=== PATIENT | male | born 1965 | race Caucasian/White ===

== ENCOUNTER 2019-03-26 11:03 | Inpatient (IN) ==
--- NOTE | 2019-03-26 15:57 | Diag Imaging Result Doc PS360 ---
EXAM: MRI BRAIN W/WO CONTRAST HISTORY: CVA TECHNIQUE: MRI brain with and without intravenous contrast. Axial, sagittal, and coronal images obtained in multiple sequences. These are followed by post contrasted axial and coronal images. COMPARISON: CT head from 03/23/2019 FINDINGS: Motion degrades image quality. There is a recent 12 x 19 mm infarct in the right basal ganglia. There also appears to be a recent lacunar infarct in the mid left parietal lobe measuring only 4 to 5 mm. There are prominent chronic microvascular ischemic changes with old infarcts. There is also atrophy. No mass or midline shift. No enhancing lesion identified on the post contrasted images. No hydrocephalus. No epidural or subdural fluid collection. IMPRESSION: 1.Recent right basal ganglia infarct and likely tiny left parietal lacunar infarct. 2.Atrophy with chronic microvascular ischemic changes and multiple old infarcts. Two Electronically signed by Adam Modi 03/26/2019 3:54 PM
--- NOTE | 2019-03-26 15:58 | Diag Imaging Result Doc PS360 ---
EXAM: MRA BRAIN W/CONTRAST HISTORY: CVA TECHNIQUE: MR angiography of the brain. MIP images obtained. COMPARISON: None. FINDINGS: There is normal flow within each distal internal carotid artery. Normal anterior and middle cerebral arteries. No occlusion or stenosis. Normal flow in the basilar artery with filling of both posterior cerebral arteries. Left posterior communicating artery. This is a normal variant. No aneurysm. IMPRESSION: No occlusion or stenosis identified in the [place]. Electronically signed by Adam Modi 03/26/2019 3:56 PM
--- NOTE | 2019-03-26 16:04 | Diag Imaging Result Doc PS360 ---
EXAM: MRA NECK W/CONT HISTORY: CVA TECHNIQUE: MR angiography of the neck. MIP images obtained. COMPARISON: None. FINDINGS: Normal flow in the right common carotid artery. No occlusion or stenosis. Normal flow in the right internal carotid artery. Normal flow in the left common carotid artery. No occlusion or stenosis. Normal flow in the left internal carotid artery. There is flow in both vertebral arteries. IMPRESSION: No occlusion or stenosis. Electronically signed by Adam Modi 03/26/2019 4:01 PM
[2019-03-26 16:39] LABS: HEMOGLOBIN A1C 7.5 % (4.8-6.0)
[2019-03-26] MEDS: LOVENOX SUBQ SCH (18:11)
[2019-03-26] MEDS: HUMULIN R SUBQ SCH ×2 (18:21→23:22)
--- NOTE | 2019-03-26 18:36 | ECHO REPORT ---
ORDER DATE: 03/26/2019 INDICATION: Embolism, hypertension, diabetes. FINDINGS: 1. The right atrium appears normal in size at 3.5 cm. 2. Trace tricuspid regurgitation. RV systolic pressure 22. 3. Normal RV size and systolic function. 4. No significant pulmonic insufficiency. 5. Normal left atrial size with dimension 3.8 cm. 6. No mitral valve prolapse. Trace mitral regurgitation. No evidence of mitral stenosis. 7. Normal LV size, end-diastolic dimension of 4.1 cm. Suggestion of mild left ventricular hypertrophy on this study with difficult views to obtain endocardial thicknesses. Normal LV systolic function with an estimated EF greater than 55%. 8. Aortic valve opens well. No evidence of stenosis or insufficiency. 9. Aorta appears normal in visualized segments. 10. No pericardial effusion is identified on this study. cc: MD Vineet Mckeon MD
[2019-03-26] MEDS ORDERED: MAGNESIUM SULFATE 2 GM/S.W.I. 2 GM/50 ML IVPB IV ONE (21:59)
--- NOTE | 2019-03-26 22:36 | HISTORY AND PHYSICAL ---
CHIEF COMPLAINT: A 53-year-old white gentleman was brought in my office as a new patient after being seen in the ER 2 days ago. As per the patient's brother, he has been ambulating very well, seeing some doctor for chronic diabetes and hypertension. He has been disabled since 2016 for chronic back pain. HISTORY OF PRESENT ILLNESS: Apparently in the ER, the patient had generalized weakness, not able to walk and the patient was told everything was fine. The patient was sent home. In my office he was wheelchair-bound. He was responding. He was not able to ambulate. Clinical exam compatible with mild droop, facial asymmetry on the left side and weak left hand and left leg, not able to walk. He also had enophthalmos of the right eye, with the eye slightly down and out. He obviously had a stroke on the right side on the clinical exam. I am also concerned about possible aneurysm on the right side based on the right eye findings, with ptosis. The left eye is down, but the pupil is not dilated. Clinical exam is confusing. I told the patient's brother that he needs to be hospitalized with possible stroke. He needs a repeat MRI, MRA, and also will seek for Dr. Welsh's opinion. We will admit to the hospital again. PAST MEDICAL HISTORY: Reported metabolic syndrome, hypertension, stasis dermatitis in both legs, vitamin B12 deficiency, type 2 diabetes, onychomycosis of the nails. PAST SURGICAL HISTORY: None reported. MEDICINES: Lisinopril 20 mg daily, metformin 500 p.o. b.i.d. ALLERGIES: Not known. SOCIAL HISTORY: Disabled from the back since 2016. Single. Lives in [place]. No smoking, no drug abuse. FAMILY HISTORY: Father of heart failure at 72. Mother is still alive. Brother has high blood pressure. REVIEW OF SYSTEMS: HEENT: No speech problem. No swallowing difficulties. Poor coordination. No vision problems. No neck pain. Cardiopulmonary: No chest pain, shortness of breath, PND or orthopnea. GI: No nausea, vomiting, abdominal pain. : No history of hesitancy or frequency. Chronic stasis dermatitis changes on both legs, and bad hygiene on both feet with fungus. Some weakness on the left side. Not able to ambulate. No seizures. PHYSICAL EXAMINATION: VITAL SIGNS: Temperature is 98.4 degrees, pulse 79, blood pressure is 150/84, 93% on room air. Six feet tall, 235 pounds. HEENT: Atraumatic, normocephalic. Right eye is slightly down and out with ptosis and enophthalmos. Pupil is somewhat small. Facial asymmetry on the left side with droop. NECK: Supple. No carotid bruit. JVD is not elevated. CHEST: Bilateral air entry. HEART: Sounds are regular. No murmurs. ABDOMEN: Belly is soft, obese, nontender. SKIN: Very dry. RECTAL: Unable to do. EXTREMITIES: Chronic venous stasis changes on both legs. Fungus on both feet and also nails. NEUROLOGIC: Weakness on the left side, not able to walk. LABORATORY DATA: On 03/23/2019, white cell count 14, hemoglobin 18, hematocrit 51, platelets 196,000. SMA 7 is normal. Glucose 181. A1c is 7.5. AST, ALT normal. Triglycerides 257. Alcohol level was not detected. DIAGNOSTIC DATA: EKG: Normal sinus, prolonged Q-T interval on 03/23/2019. CT head: Multiple old infarcts with chronic microvascular ischemic changes. ASSESSMENT AND PLAN: A 53-year-old white gentleman admitted to the hospital with new onset of stroke, right side, with weakness on the left side, with significant right eye findings suspicious for questionable 3rd nerve palsy with facial asymmetry, admitted to the hospital with this plan: 1. Aspirin 81 mg daily, Lovenox for deep venous thrombosis prophylaxis, insulin with sliding scale with insulin coverage. Check the lipid profile, free T4 and CRP. He had extensive workup done 2 days ago. 2. Neurology consult. 3. MRI of the brain, MRA of the brain and echocardiography, and follow up on the pending labs. 4. Prolonged Q-T interval. We will give magnesium sulfate. 5. Physical Therapy consult for ambulation. 6. Aircraft Mechanic Electrical [employer] consult for disposition for placement. 7. Follow up on the labs. cc: Vineet Garcia MD
[2019-03-26] MEDS: ASPIRIN PO SCH (23:23)
[2019-03-27 06:43] LABS: C REACTIVE PROT QUANT 32.42 mg/L (0.00-5.00); CHOLESTEROL 201 mg/dL (0-200); HDL 27 mg/dL (35-55); LDL 143 mg/dL; TRIGLYCERIDES 156 mg/dL (39-160); VLDL 31 mg/dL
[2019-03-27] MEDS: HUMULIN R SUBQ SCH ×4 (07:47→22:36)
[2019-03-27] MEDS: GLUCOPHAGE PO SCH ×2 (09:47→18:00)
[2019-03-27] MEDS: PRINIVIL PO SCH (09:48)
--- NOTE | 2019-03-27 15:24 | CONSULTATION ---
DATE OF CONSULTATION: 03/27/2019 SUBJECTIVE: Mr. Hutchinson is 53 years old, and there is question of stroke. He reports having trouble on Saturday. He seems reluctant to give me the details. He presented to the hospital emergency room on 03/23/2019 with reported complaint of general weakness. He was reported to be alert and oriented, and requesting discharge. No neurologic deficit was documented. Noncontrast CT of the head was reported to show hypodensity right occipital, and basal ganglia bilaterally consistent with prior infarctions, also right cerebellar infarction. There was nothing acute and no bleeding. He was discharged. Remainder of history is taken from Dr. Garcia's admission note. There is report that Mr. Hutchinson has been unable to walk. Dr. Garcia found left-sided weakness and admitted him. Subsequent workup includes brain MRI showing moderate-sized infarction in the right basal ganglia with restricted diffusion consistent with acute ischemic stroke. There is also a small left posterior parietal subcortical lesion that may be additional recent stroke. The old lacunar infarcts are identified. Cervical and brain MRA were both unremarkable. Echocardiogram showed no source of embolus. He has been afebrile. Heart rate has ranged 69 to 85. Systolic blood pressures have ranged 150 to 186. Lab showed elevated blood sugar, A1c 7.5%, AST 45 on 03/23/2019, total cholesterol 201 today with HDL 27, VLDL 31, and LDL 143. We do not have urine toxicology this admission. PHYSICAL EXAMINATION: On exam, Mr. Hutchinson appears to be awake, alert, and attentive. He did not answer questions briskly. His responses were delayed. Speech is low volume but not dysarthric and is easily understood. Language function is intact on bedside testing of repeating, naming, comprehension, fluency. He identified the hospital by name, provided the correct name of the month, the year, and the President. I did not test his cognitive function further. Head and neck are unremarkable. There is no meningismus. He has full visual mendiola tested by confrontational finger counting. Extraocular movements are full. Facial motility is good bilaterally. The left nasolabial fold is very slightly less prominent than the right. Tongue protrudes in the midline. Palate is midline. Shoulder shrug is good bilaterally. Strength is normal in the right limbs. On the left, I can overcome the deltoid grading 4/5, wrist extensor 4/5, tail trimmer 4+/5, iliopsoas 3/5, and anterior tibialis 3/5. Tone is increased in the left arm. He did rapid alternating movements a little better with the right hand than the left. He did well with [id number] testing bilaterally. He reports diminished sensation in a stocking pattern bilaterally, significant distal sensory deficit extending to about the knee bilaterally. He reports equal pinprick appreciation over the hands. Proprioception is good at the second finger MP joint bilaterally. Reflexes are absent at the ankles and 1+ symmetrically at the wrists. I did not test his gait. IMPRESSION: 1. Left hemiparesis. This is relatively pure motor deficit consistent with the non dominant basal ganglia area infarction which appears to be acute on imaging. He has risk factors for cerebrovascular ischemic problems including hypertension, dyslipidemia, diabetes mellitus, and cigarette smoking. He reports family history that father had heart attack in his 40s. We need to continue current management, allow adequate blood pressure, encourage fluids, treat blood sugar and lipids aggressively, encourage smoking cessation, continue DVT prophylaxis and request physical therapy. 2. He is slow to respond and inability or unwillingness to provide detailed history are noted. I do not know his baseline personality. I called the phone number we have listed for contact and found that is a wrong number. I have not spoken with family. I do not know if this is a real issue or not. Thanks for asking Neurology to see Mr. Hutchinson. cc: MD Vineet Suazo III, MD MTDD
[2019-03-27] MEDS: LOVENOX SUBQ SCH (15:36)
--- NOTE | 2019-03-27 21:16 | PROGRESS NOTE ---
DATE: 03/27/2019 SUBJECTIVE: The patient is poor historian. He continues to have some weakness on the left side. He is obese. I appreciate Dr. Welsh consult. EXAMINATION: VITAL SIGNS: Temperature is 98. Vitals are stable. HEENT: Within normal limits. Chest: Clear. Heart: Sounds are regular. Abdomen: Belly is soft, nontender. Neurologic: He has subtle weakness on the left side. INVESTIGATIONS: A1c 7.5, LDL is 143. 1. MRI reviewed. Acute infarct in the right basal ganglia. 2. MRA: No obstructive lesions noted. No aneurysm. ASSESSMENT AND PLAN: 1. Metabolic syndrome. 2. Right-sided cerebrovascular accident due to lacunar stroke. Started on Lipitor 40 mg at bedtime for LDL 143. 3. Hypertension on lisinopril. 4. Type 2 diabetes on metformin. 5. Gastrointestinal and deep vein thrombosis prophylaxis with Lovenox. Continue physical therapy. 6. Chronic venous stasis dermatitis, stable. 7. Plan of care is rehab placement on Saturday. Manager Poker consult over the weekend. LEVEL OF DOCUMENTATION: 25 minutes. cc: Vineet Garcia MD
[2019-03-27] MEDS: ASPIRIN PO SCH (23:05)
[2019-03-27] MEDS: LIPITOR PO SCH (23:05)
[2019-03-28] MEDS: HUMULIN R SUBQ SCH ×4 (06:48→23:07)
[2019-03-28] MEDS: PRINIVIL PO SCH (08:18)
[2019-03-28] MEDS: GLUCOPHAGE PO SCH ×2 (08:18→17:18)
[2019-03-28] MEDS: LOVENOX SUBQ SCH (14:54)
--- NOTE | 2019-03-28 19:43 | PROGRESS NOTE ---
DATE: 03/28/2019 SUBJECTIVE: The patient is out of the bed. He is a very poor historian. He is moving the left upper extremity, slightly improving. He is obese. No complaints. OBJECTIVE: On exam, temperature is 98 degrees, pulse 70, blood pressure is stable. HEENT exam: Facial asymmetry, improving. Neck is supple. Chest is clear. Heart sounds are regular. Belly is soft, nontender. Subtle weakness in the left leg. INVESTIGATIONS: LDL is 143. A1c 7.5. MRA of the brain and neck: No critical stenosis noted. Appears to be lacunar stroke. Also, followup on echocardiography: Ejection fraction 58%. The patient is in sinus. No valvular heart disease seen. ASSESSMENT AND PLAN: 1. Right-sided stroke, multiple strokes due to lacunar disease. Continue on secondary prevention which includes aspirin. 2. LDL less than 70. 3. A1c is reasonably controlled. 4. Deep venous thrombosis prophylaxis. 5. Continue physical therapy. 6. Cement Mason Apprentice consult. 7. Follow up on MRI. Level of documentation 25 minutes. cc: Vineet Garcia MD
[2019-03-28] MEDS: ASPIRIN PO SCH (23:08)
[2019-03-28] MEDS: LIPITOR PO SCH (23:08)
[2019-03-29] MEDS: HUMULIN R SUBQ SCH ×4 (06:49→23:03)
[2019-03-29] MEDS: PRINIVIL PO SCH (09:00)
[2019-03-29] MEDS: GLUCOPHAGE PO SCH ×2 (09:00→17:21)
--- NOTE | 2019-03-29 13:39 | PROGRESS NOTE ---
DATE: 03/29/2019 LABORATORY: Blood sugar 140. OBJECTIVE: Vital signs: Stable with temperature 97.7 degrees, heart rate 74, respirations 20, blood pressure 140/56, O2 saturation on room air 92%. General: The patient is a 53-year-old white man post right basal ganglia stroke with left-sided weakness. His speech is minimal, but he seems to understand spoken word and responds with a few words appropriately. He has left-sided weakness and cannot walk without assistance. Social Service consult consultation has been obtained. DISPOSITION: Plans will be made early next week. cc: MD Vineet Monaco MD
[2019-03-29] MEDS: LOVENOX SUBQ SCH (13:47)
[2019-03-30] MEDS: LIPITOR PO SCH ×2 (00:26→21:04)
[2019-03-30] MEDS: ASPIRIN PO SCH ×2 (00:27→21:04)
[2019-03-30] MEDS: HUMULIN R SUBQ SCH ×4 (06:36→21:00)
[2019-03-30] MEDS: PRINIVIL PO SCH (08:55)
[2019-03-30] MEDS: GLUCOPHAGE PO SCH ×2 (08:55→17:45)
--- NOTE | 2019-03-30 12:09 | PROGRESS NOTE ---
DATE: 03/30/2019 SUBJECTIVE: Mr. Hutchinson reports no significant change in the left-sided weakness over the weekend. I discussed his laconic replies to my initial history and questions today with a brother present now at the bedside. Brother reports this does appear to be a change in personality. We discussed possibility that nondominant hemisphere infarction might be the explanation. I do not have any new suggestion. We reviewed his risk factors again and I strongly encouraged him to quit smoking cigarettes. He will keep followup with Dr. Garcia. I will be glad to see him again if needed. I agree with plans for rehab. cc: MD Vineet Suazo III, MD MTDJessi
[2019-03-30] MEDS: LOVENOX SUBQ SCH (14:52)
--- NOTE | 2019-03-30 19:18 | PROGRESS NOTE ---
DATE: 03/30/2019 SUBJECTIVE: The patient is a little bit improving. Appreciated Dr. Welsh consult. REVIEW OF SYSTEMS: Moving the left side of the leg. OBJECTIVE: Vital Signs: Temperature is 98 degrees, pulse 74, blood pressure 141/60. General: Morbidly obese. HEENT: Within normal limits. Mild facial asymmetry improving. Chest: Clear. Heart: Sounds are regular. Abdomen: Belly is soft and nontender. Slight weakness on the left side. ASSESSMENT AND PLAN: 1. Cerebrovascular accident and right side with left-sided weakness. 2. Multi-infarct dementia. 3. Depression. 4. Hypertension. 5. Diabetes. Plan of care is waiting for rehabilitation placement. If a bed is available we will discharge to [facility]. We will start some antidepressants as well and waiting for the [facility]. LEVEL OF DOCUMENTATION: 25 minutes. cc: Vineet Garcia MD
[2019-03-31] MEDS: HUMULIN R SUBQ SCH ×3 (07:00→21:00)
[2019-03-31] MEDS: WELLBUTRIN PO SCH (10:20)
[2019-03-31] MEDS: PRINIVIL PO SCH (10:20)
[2019-03-31] MEDS: GLUCOPHAGE PO SCH ×2 (10:20→17:30)
[2019-03-31] MEDS: LOVENOX SUBQ SCH (14:18)
--- NOTE | 2019-03-31 15:17 | Carotid Study ---
DATE: 03/26/2019 PROCEDURE: Carotid duplex imaging. REFERRING PHYSICIAN: Juan Francisco Garcia MD. READING PHYSICIAN: Vijay Mcginnis MD. TECH: Ashlee. INDICATIONS: Syncope. OBSERVED DATA RIGHT LEFT Brachial Blood Pressure Carotid Pulse Bruits: Carotid/Sub DIAGRAM OF ULTRASOUND IMAGING R L RIGHT INT EXT INT EXT LEFT Hussein (cm/s) Hussein (cm/s) Subclavian 89/7 Subclavian 149/0 CCA Proximal 82/6 CCA Proximal 78/7 CCA Distal 59/9 CCA Distal 50/8 Bulb 47/5 Bulb 49/8 ICA Proximal 44/11 ICA Proximal 31/9 ICA Mid 61/14 ICA Mid 48/13 ICA Distal 86/24 ICA Distal 57/16 ECA 103/9 ECA 112/0 Vertebral 44/8 Vertebral 51/8 ICA/CCA Ratio 1.1 ICA/CCA Ratio 0.7 % Stenosis 0-39 % Stenosis 0-39 FINDINGS: There is no significant atherosclerotic or plaque disease in either carotid system bilaterally. There is antegrade vertebral flow bilaterally. PHYSICIAN INTERPRETATION: Normal carotid imaging study. cc: MD Vineet Celis MD
--- NOTE | 2019-03-31 19:05 | VASCULAR LAB ---
PROCEDURE NAME: Arterial Bilateral Legs - 03/26/2019 REFERRING PHYSICIAN: Jose. READING PHYSICIAN: Ras. BRAKE OPERATOR SHEET METAL: Tamera. INDICATION: Peripheral vascular disease. FINDINGS: Pulse volume waveforms show excellent pulsatile flow at all levels bilaterally. Segmental pressures: Right brachial 156, high thigh 247, low thigh 211, popliteal 188, dorsalis pedis 160; posterior tibial 176, toe pressure 123, COLTON 1.1. Left brachial pressure 144, high thigh 240, low thigh 206, popliteal 178, dorsalis pedis 152, posterior tibial 166, toe pressure 99, COLTON 1.1. INTERPRETATION: Normal lower extremity arterial study. cc: MD Vineet Celis MD
--- NOTE | 2019-03-31 21:35 | PROGRESS NOTE ---
DATE: 03/31/2019 SUBJECTIVE: A 53-year-old, white male admitted with a stroke on the left side. Eating well on his own. I spoke to the sr. social media & mobile manager. Waiting for a bed in [facility]. OBJECTIVE: Vitals: Stable. HEENT: Within normal limits. Chest: Clear. Heart: Sounds are regular. Abdomen: Obese. INVESTIGATIONS: None. Arterial flow studies on 03/16/2019, normal lower extremity arterial flow study. ASSESSMENT AND PLAN: 1. Cerebrovascular accident due to lacunar stroke on the right side with left-sided hemiparesis. 2. Deconditioning. 3. Depression. PLAN OF CARE: Rehab placement. Continue the secondary prevention. The patient out of bed in [facility] rehab and will follow up on discharge in the morning. LEVEL OF DOCUMENTATION: 25 minutes. cc: Vineet Garcia MD
[2019-03-31] MEDS: ASPIRIN PO SCH (22:02)
[2019-03-31] MEDS: LIPITOR PO SCH (22:02)
[2019-04-01] MEDS ORDERED: DESITIN OINTMENT TOP PRN (00:42)
[2019-04-01] MEDS: HUMULIN R SUBQ SCH (06:50)
--- NOTE | 2019-04-01 08:06 | DISCHARGE SUMMARY ---
ADMISSION DATE: 03/26/2019 DISCHARGE DATE: 04/01/2019 DISCHARGING DIAGNOSES: 1. Right cerebrovascular accident with left-sided hemiparesis due to lacunar infarcts. 2. Vascular dementia. 3. Depression. 4. Hypertension. 5. Metabolic syndrome. 6. Stasis dermatitis in both legs. 7. Vitamin B12 deficiency. 8. Hyperlipidemia. 9. Onychomycosis of the nails. CONSULTS: Dr. Welsh. PROCEDURES: 1. MRI of the brain: A recent right basal ganglia infarct and tiny left parietal lacunar infarct, multiple old infarcts with chronic ischemic changes. 2. Brain MRI: No occlusion or stenosis identified in the [id number]. 3. MRA of the neck: No occlusion or stenosis of major vessels. 4. Arterial flow studies in both legs: COLTON 1.1 on each side. 5. Carotid Doppler studies: No hemodynamic stenosis in either internal carotid system. 6. Echocardiography reports: The patient has normal LV systolic function, 55%. No significant valvular heart disease seen. BRIEF HISTORY: Please see the H and P that was done on 03/26/2019. In brief, he is a 53-year- old, white gentleman who was in a good shape until few days ago. Came to the ER with sudden onset of left-sided weakness, not able to ambulate. He is not a very good historian. Patient was admitted to the hospital based on the clinical grounds with a CVA on the right side with left hemiparesis. HOSPITAL COURSE: After further workup, it was concluded that the patient has lacunar strokes with multifocal exhibiting vascular dementia with depression symptoms. He is able to tolerate the diet very well. Dr. Welsh was consulted. He needs intensive rehab and continue on secondary prevention. LABS: CBC: White cell count 14, hematocrit 51.9, platelets 196,000. Sodium 137, potassium 4.1, chloride 98, BUN 15, creatinine 0.1, glucose 181, A1c 7.5. CRP was high. Cholesterol 201, LDL 143, HDL 27. Thyroid function test was normal. Urinalysis is clear. Urine microalbumin is positive. Plasma alcohol, none detected. DISCHARGE INSTRUCTIONS: At the request of the family, he is being transferred to the rehab with the following instructions: 1. Aspirin 81 mg daily, Lipitor 40 daily, Wellbutrin 150 in the morning, lisinopril 20 daily, metformin p.o. b.i.d., B12 1000 mcg daily. 2. Care of the skin, bladder, bowels, mostly both legs, and intensive rehab with physical therapy. 3. Will follow up in my office in 1 month. cc: MD Amalia Etienne III, MD
[2019-04-01] MEDS: PRINIVIL PO SCH (09:27)
[2019-04-01] MEDS: WELLBUTRIN PO SCH (09:27)
[2019-04-01] MEDS: GLUCOPHAGE PO SCH (09:27)
[2019-04-01 12:46] VITALS: BP 173/86
== END 2019-04-01 13:00 | DRG 65 ==
LOC: DIRADM 11:03 → 4N 11:10
PROVIDERS: ADMIT Internal Medicine; ATTEND Internal Medicine
CPT/HCPCS: 70450; 70545; 70548; 70553; 71010; 71045; 80053; 80061; 80307; 80320; 82055; 82948; 83036; 83690; 84439; 84484; 85025; 86140; 93005; 93306; 93880; 93923; 97110; 97162; 97530; 99285; A9270; A9579; C8929; G0480; G6040; J1650; J3475; Q9957; XXXXX

== ENCOUNTER 2019-04-22 12:23 | Inpatient (IN) ==
--- NOTE | 2019-04-22 14:14 | PROVIDER DOCUMENTATION ---
HPI-Neurological Disorder - General Chief Complaint: Weakness Stated Complaint: Weakness Time Seen by Provider: 04/22/19 14:00 Source: patient, EMS Allergies/Adverse Reactions: Patient Allergies Allergy/AdvReac Type Severity Reaction Status Date / Time No Known Allergies Allergy Verified 04/22/19 12:45 Home Medications: Home Medication List Medication Instructions Recorded Confirmed Last Taken Type LISINOpril [Prinivil] 20 mg PO DAILY #30 tablet 04/01/13 04/22/19 Unknown Rx Metformin [Glucophage] 500 mg PO BID CC #60 tablet 04/01/13 04/22/19 Unknown Rx ATORVAstatin [Lipitor] 40 mg PO QHS tab 04/01/19 04/22/19 Unknown Rx Aspirin 81 mg PO HS chewtab 04/01/19 04/22/19 Unknown Rx B1/B2/B3/B5/B6/FA/B12/C [Ribozel 1 ea PO DAILY #90 cap 04/01/19 04/22/19 Unknown Rx 159 mg Capsule] Bupropion [Wellbutrin] 150 mg PO QAM tab 04/01/19 04/22/19 Unknown Rx LISINOpril [Prinivil] 20 mg PO DAILY tab 04/01/19 04/22/19 Unknown Rx Cholecalciferol (Vitamin D3) 2,000 unit PO DAILY 04/22/19 04/22/19 Unknown History [Vitamin D3] Hydrochlorothiazide 25 mg PO DAILY 04/22/19 04/22/19 Unknown History Potassium Chloride E.r. [Klor-Con] 20 meq PO DAILY 04/22/19 04/22/19 Unknown History - History of Present Illness-Neuro Nature of Presenting Problem: 53 YOM PRESENTS WITH APHASIA SINCE SATURDAY. PT IS ATTEMPTING TO SPEAK BUT DIFFICULT TO UNDERSTAND. HX COMES FROM EMS REPORT. THE PATIENT CAN FOLLOW COMMANDS. HE DENIES CP, SOB, FEVER, CHILLS, N/V/D AND AVITIA BY SHAKING HEAD SIDE TO SIDE WHEN ASKED EACH DIRECTLY. HE REPORTS A PREVIOUS CVA. Onset/Duration: reports: 6 days ago Timing: reports: still present Context: reports: impaired speech, facial droop. denies: head injury, seizure activity Any recent trauma/injury?: reports: none Character of Deficits: reports: impaired speech New weakness or altered sensation location:: reports: none Cognitive Baseline: other (ALERT BUT UNABLE TO VERBALIZE ANSWERS TO ORIENTATION QUESTIONS) Associated Symptoms: reports: slurred speech (APHASIA), trouble walking. denies: headache, chest pain, neck/back pain, fever/chills, nausea, seizures, weakness Similar Symptoms Previously?: No Recently seen or treated by another doctor?: No Review of Systems - Adult - REVIEW OF SYSTEMS - ADULT ROS:: limited per condition Constitutional: reports: no symptoms reported. denies: see HPI, chills, fever, fatique, night sweats, weight gain, weight loss, other Eyes: reports: no symptoms reported. denies: see HPI, discharge, dry eyes, decreased vision, blurred vision, double vision, eye pain, redness, other Ears, Nose, Mouth & Throat: reports: no symptoms reported. denies: see HPI, ear discharge, ear pain, hearing loss, tinnitus, epistaxis, sinus problem, nose pain, loose teeth, mouth/dental pain, mouth swelling, hoarseness, throat pain, throat swelling, other Cardiovascular: reports: no symptoms reported. denies: see HPI, chest pain, edema, heart murmur, irregular heart rate, orthopnea, palpitations, poor circulation, PND, syncope, other Respiratory: reports: no symptoms reported. denies: see HPI, chronic cough, cough, dyspnea on exertion, excessive sputum production, hemoptysis, pleurisy, shortness of breath, wheezing, other Gastrointestinal: reports: no symptoms reported. denies: see HPI, abdominal pain, hematemesis, constipation, diarrhea, difficulty swallowing, frequent heartburn, nausea, poor appetite, rectal bleeding, vomiting, other Genitourinary: reports: no symptoms reported. denies: see HPI, dysuria, dischar ge, frequency, flank pain, frequent UTI's, hematuria, hesitency, incontinence, urinary retention, urgency, other Musculoskeletal: reports: no symptoms reported. denies: see HPI, bone pain, back pain, frequent leg cramps, joint pain, joint swelling, muscle aches, muscle weakness, neck pain, other Integumentary: reports: no symptoms reported. denies: see HPI, hives, hair loss, itching, mole changes, nail changes, rash, skin sores/ulcer, skin thic kening, other Neurological: reports: slurred speech (APHASIA). denies: no symptoms reported, see HPI, ataxia, dizziness/vertigo, headache/migraines, loss of balance, numbness, paresthesia, seizure, syncope, tremors, other Psychiatric: reports: no symptoms reported. denies: see HPI, anxiety, anti- depressant use, alcohol/drug dependence, depression, emotional problems, insomnia, panic attacks, suicidal thoughts, other Endocrine: reports: no symptoms reported. denies: see HPI, change in skin pigment, excessive sweating, goiter, cold intolerance, heat intolerance, increased hunger, increased thirst, polyuria, other Hematologic/Lymphatic: reports: no symptoms reported Allergic/Immunologic: reports: no symptoms reported Past History - Adult - PAST MEDICAL HISTORY-ADULT Review of Records: reports: Nursing Assessment Review Physical Exam- Neurological - Physical Exam-Neuro Initial Vital Signs Reviewed: Yes General Appearance: alert Eye Exam: bilateral eye: normal inspection, PERRL, EOMI HENMT: normocephalic/atraumatic, moist mucous membranes Head Injury: no evidence of injury Neck: full range of motion, supple Respiratory: chest non-tender, lungs clear Cardiovascular: normal peripheral pulses, regular rate, rhythm Abdominal Exam: normal bowel sounds, non tender, soft Lymphatic: no adenopathy Peripheral Pulses: radial (R): 2+, radial (L): 2+, dorsalis-pedis (R): 2+, dorsalis-pedis (L): 2+ Extremity: no pedal edema, no calf tenderness, other (SKIN CHANGES TO BLE, SMALL WOUND PRESENT ON RLE). 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 negative: normal speech Coordination/Gait: normal finger to nose. negative: normal gait Motor/Sensory: no sensory deficit, weak motor strength RLE, weak motor strength LLE. negative: pronator drift (R), pronator drift (L) Neurologic: aphasia Integumentary: normal turgor, warm/dry Psych/Mental Status: normal mood/affect. negative: oriented x 3 (BETTINA DUE TO APHASIA) - Glascow Coma Scale Best Eye Response: (4) open spontaneously Best Verbal Response: (2) incomprehsible sounds Best Motor Response: (6) obeys commands Progress - PLAN OF CARE/RESULTS Progress/Plan/Lab Results: 04/22/19 17:05 - Final Blood Orders Category Date Time Status Admit - [facility] Routine AdmDCTranf 04/22/19 17:22 Active Finger Stick Blood Sugar (ED) DIRECTED Care 04/22/19 14:08 Completed Saline Loc NOW Care 04/22/19 14:[address] HEAD W/O CONTRAST [CT] Stat Exams 04/22/19 14:07 Completed cxr [CHEST-2 VIEWS] [RAD] Stat Exams 04/22/19 14:23 Completed BC [BLOOD CULTURE] [BLDCUL] Stat Lab 04/22/19 17:10 Results CBC WITH ELECTRONIC DIFF [HEME] Stat Lab 04/22/19 13:50 Completed CK PROFILE [SP CHEM] Stat Lab 04/22/19 13:50 Completed COMPREHENSIVE METABOLIC PANEL [CHEM] Stat Lab 04/22/19 13:50 Completed GRAM STAIN [BLDCUL] Stat Lab 04/22/19 17:05 Results PROTIME WITH INR [COAG] Stat Lab 04/22/19 13:50 Completed PTT [COAG] Stat Lab 04/22/19 13:50 Completed TROPONIN T Stat Lab 04/22/19 13:50 Completed UA NIMS W/REFLEX CULT [URINALYSIS] Stat Lab 04/22/19 16:47 Completed URINE DRUG SCREEN Stat Lab 04/22/19 16:47 Completed 0.9% Sodium Chloride Inj [Ns] 1,000 ml Med 04/22/19 17:31 Discontinued IV 125 mls/hr 0.9% Sodium Chloride Inj [Ns] 1,000 ml Med 04/22/19 15:13 Discontinued IV 999 mls/hr EKG [EKG] Stat Ther 04/22/19 12:43 Draft Transfer/Admit Order [TRANSFER] Routine Transfer 04/22/19 17:21 Completed SPOKE WITH MOTHERLILIANA AT [phone]- SHE REPORTS THE PATIENT WAS DISCHARGED FROM REHAB ON SATURDAY AFTER HAVING A CVA ONE MONTH AGO. UPON DISCHARGE SHE REPORTS PATIENT COULD WALK WITH ASSISTANCE AND SPEAK VERY QUIETLY BUT YOU "HAVE TO LISTEN TO UNDERSTAND IT". SHE REPORTS THE PATIENT HAS BECOME GENERALLY INCREASINGLY WEAK SINCE DISCHARGE. SHE REPORTS SINCE LAST NIGHT ON 04/21/19 THE PATIENTS SPEECH HAS BEEN WORSE AND HE COULD NOT SPEAK WITH HER. SHE ALSO REPORTS THE PATIENT HAS HAD A POOR APPETITE SINCE ARRIVING HOME. SHE REPORTS THE FACIAL DROOP HE HAD PREVIOUSLY BUT SHE IS UNSURE IF IT IS WORSE THAN THAT. SHE REPORTS SHE IS UNABLE TO COME TO THE HOSPITAL DUE TO HER BACK PAIN AND CAR NOT WORKING. SHE REQUEST NURSING UPDATE HER AFTER TESTS ARE COMPLETED AT THE ABOVE NUMBER. Result Diagrams: 04/23/19 06:02 04/23/19 06:02 - EKG 1 Time of EKG reading by physician:: 12:44 EKG Read and Signed by:: Diane Stanfodr EKG Interpretation (*Must complete 3 of following elements*): Abnormal Rate: 88 Rhythm: SR WITH OCCASIONAL CONSECUTIVE PVC'S [place]: normal QRS: normal FL Interval: normal ST Wave: non-specific ST changes - XRAY 1 XRAY Study: Chest Impression: Abnormal, See EMR Report (HISTORY: R/O PNA TECHNIQUE: AP upright and lateral at 1454 COMMENT: There is subsegmental atelectasis in the lingula and left lower lobe. This is worse than on the previous study of 03/23/2019. IMPRESSION: Left basilar atelectasis. Electronically signed by Leonidas Campa 04/22/2019 3:00 PM) - CT/MRI 1 CT Study: Head Impression: Abnormal, See EMR Report (HISTORY: new aphasia TECHNIQUE: This exam was performed using automated exposure control, adjustment of mA or kV a ccording to patient size, and/or use of iterative reconstruction technique. COMMENT: There are patchy white matter lucencies and areas of cortical encephalomalacia particularly in the posterior parietal occipital region on the right. There is a fairly large lacune in the inferior basal ganglia on the right. There is no evidence of bleed mass effect or abnormal extra-axial fluid collection. Considering differences in technique there has been no appreciable change since 03/23/2019. IMPRESSION: Extensive chronic ischemic change. No evidence of mass or bleed.) - CONSULTS/PCP/HOSPITALIST Notification #1 *Consult/PCP/Hospitalist*: DR MARTINEZ PAGED FOR ADMIT @ 1689 Time Discussed: 17:30 Reason/Comments: RECOMMENDS NO ABX Consult Disposition: Admit Departure - Departure Date of Disposition Decision: 04/22/19 Time of Disposition Decision: 17:45 DIAGNOSIS: JEROME (acute kidney injury), Dehydration Disposition: ADMITTED INPATIENT 09 Certified Medical Emergency: Emergent Condition: Stable - Critical Care Note This patient required my direct & personal management of CC.: No Attestation - Physician/ NETO Attestation Patient care was provided by Advanced Practice Provider:: Yes Advanced Practice Provider:: Anahi Swartz Advanced Practice Provider documentation review:: The Mid-level provider documentation, treatment plan and medical decision making was reviewed by the physician who agrees with all treatment and medical decision making by the MLP. The physician spent face to face time with patient:: No Advanced Practice Provider documentation review:: Supervising physician onsite and consulted in the evaluation and care of this patient. The physician did not have a face to face encounter with the patient. - NIH Stroke Scale NIH Type: Initial Evaluation Level of Consciousness: 0-Alert LOC Questions (ask month and age): 1-Answers One Correctly LOC Commands (ask to open & close eyes;make a fist, let go): 0-Obeys Both Correctly Best Gaze (horizontal eye movement): 0-Normal Visual (use finger movement, counting or visual threat): 0-No Visual Loss Facial Palsy (show teeth or raise eyebrows & close eyes tght: 1-Minor Paralysis Motor Function-left arm: 0-Normal Motor Function-right arm: 0-Normal Motor Function-left le-Some Effort Against [place] Motor Function-right le-Some Effort Against [place] Limb Ataxia([id number], or heel to jurado): 0-No Ataxia Sensory(pin prick to face,arms,trunk,legs-compare side/side): 0-No Ataxia Best Language(name item/read sentence.Ex-Down to Earth): 2-Severe Aphasia Dysarthria(Pt read words or say words Ex.Mama,Tip-Top,Thanks: 2-Near Unintelligible Extinction and Inattention: 0-Normal NIH Total Score: 10 Stroke tPA Guidelines - Inclusion Criteria for IV tPA 18 years old or older: Yes Onset <3 hours ago *OR* 3-4.5 hours ago: No (SYMPTOMS BEGAN Saturday04/17/19)
--- NOTE | 2019-04-22 14:26 | EKG Report ---
Test Performed on : 04/22/2019 12:43:18 PM Test Reason : ED. NO EKG ORDER FOR MUSE Blood Pressure : / mmHG Vent. Rate : 088 BPM Atrial Rate : 088 BPM P-R Int : 154 ms QRS Dur : 108 ms QT Int : 394 ms P-R-T Axes : -04 120 060 degrees QTc Int : 476 ms Sinus rhythm. with occasional and consecutive premature ventricular complexes. Possible Lateral infarct , age undetermined Abnormal ECG When compared with ECG of 23-MAR-2019 15:37, (Unconfirmed) premature ventricular complexes. are now present Unconfirmed Result
[2019-04-22 14:27] LABS: BASO# 0.03 X1000 (0.0-0.2); BASO% 0.2 % (0.0-0.8); EOS# 0.33 X1000 (0.0-0.7); HEMOGLOBIN 16.5 g/dL (14.0-18.0); IMM GRAN# 0.05 X1000 (0.0-0.04); IMM GRAN% 0.3 % (0.0-0.5); LYMPH# 4.04 X1000 (1.2-3.4); MCH 29.1 PG (27-31); MCHC 34.4 g/dL (33-37); MCV 84.7 FL (81-99); MONO# 1.68 X1000 (0.11-0.59); MPV 10.7 FL (7.4-10.4); NEUT# 10.73 X1000 (1.4-6.5); NEUT% 63.5 % (42.2-75.2); PLT 240 X1000 (130-400); RBC 5.67 XMIL (4.7-6.1); RDW 13.2 % (11.5-14.5); WBC 16.86 X1000 (4.8-10.8)
[2019-04-22 14:34] LABS: INR 0.96; PROTIME 13.6 Seconds (11.0-16.0)
[2019-04-22 14:35] LABS: PTT 32.3 Seconds (22.3-41.8)
--- NOTE | 2019-04-22 14:55 | Diag Imaging Result Doc PS360 ---
EXAM: CT HEAD W/O CONTRAST 04/22/2019 HISTORY: new aphasia TECHNIQUE: This exam was performed using automated exposure control, adjustment of mA or kV according to patient size, and/or use of iterative reconstruction technique. COMMENT: There are patchy white matter lucencies and areas of cortical encephalomalacia particularly in the posterior parietal occipital region on the right. There is a fairly large lacune in the inferior basal ganglia on the right. There is no evidence of bleed mass effect or abnormal extra-axial fluid collection. Considering differences in technique there has been no appreciable change since 03/23/2019. IMPRESSION: Extensive chronic ischemic change. No evidence of mass or bleed. Electronically signed by Leonidas Campa 04/22/2019 2:52 PM
--- NOTE | 2019-04-22 15:02 | Diag Imaging Result Doc PS360 ---
EXAM: CHEST-2 VIEWS 04/22/2019 HISTORY: R/O PNA TECHNIQUE: AP upright and lateral at 1454 COMMENT: There is subsegmental atelectasis in the lingula and left lower lobe. This is worse than on the previous study of 03/23/2019. IMPRESSION: Left basilar atelectasis. Electronically signed by Leonidas Campa 04/22/2019 3:00 PM
[2019-04-22 15:05] LABS: ALB/GLOB RATIO 1.1; ALBUMIN 3.7 g/dL (3.5-5.0); CALCIUM 9.4 mg/dL (8.8-10.2); CREATININE 1.9 mg/dL (0.7-1.2); POTASSIUM 4.1 mmol/L (3.5-5.1); TOTAL BILIRUBIN 0.73 mg/dL (0.20-1.00); TOTAL PROTEIN 7.2 g/dL (6.3-8.3)
[2019-04-22] MEDS ORDERED: NS 1,000 ML IV ONE ×2 (15:13→17:31)
[2019-04-22 15:16] LABS: CK INDEX 0.5 (0.0-2.5); CK-MB 3.33 ng/mL (0.0-5.0)
[2019-04-22 17:09] LABS: URINE SOURCE CATH
[2019-04-22 17:14] LABS: BILIRUBIN URINE NEGATIVE (NEGATIVE); BLOOD URINE NEGATIVE (NEGATIVE); COLOR YELLOW; GLUCOSE URINE NEGATIVE (NEGATIVE); KETONE URINE NEGATIVE (NEGATIVE); LEUKOCYTES URINE NEGATIVE (NEGATIVE); NITRITE URINE NEGATIVE (NEGATIVE); PROTEIN URINE TRACE mg/dL (NEGATIVE); SP GRAVITY URINE 1.022; TURBIDITY URINE CLEAR (CLEAR); UR EPITHELIAL CELLS <10 /HPF (<10); URINE BACTERIA NEGATIVE /HPF; URINE RBC <10 /HPF (<10); URINE WBC <10 /HPF (<10); UROBILINOGEN URINE 2 mg/dL (NORMAL)
[2019-04-22 17:20] LABS: UR AMPHETAMINES QUAL NONE DETECTED (NONE DETECT); UR BARBITUATES QUAL NONE DETECTED (NONE DETECT); UR BENZODIAZEPIN QUAL NONE DETECTED (NONE DETECT); UR CANNABINOIDS QUAL NONE DETECTED (NONE DETECT); UR COCAINE QUAL NONE DETECTED (NONE DETECT); UR METHADONE QUAL NONE DETECTED (NONE DETECT); UR OPIATES QUAL NONE DETECTED (NONE DETECT); UR OXYCODONE QUAL NONE DETECTED (NONE DETECT); UR PCP QUAL NONE DETECTED (NONE DETECT)
[2019-04-22] MEDS ORDERED: NS 1,000 ML IV SCH (18:00)
--- NOTE | 2019-04-22 18:59 | HISTORY AND PHYSICAL ---
SUBJECTIVE: Weakness and dehydration. HISTORY OF PRESENT ILLNESS: The patient is a 53-year-old white male who cannot speak at this time. He had a recent CVA and apparently had been discharged on 04/01/2019 for right cerebrovascular accident with left-sided hemiparesis due to lacunar infarcts and vascular dementia; depression; hypertension; metabolic syndrome; stasis dermatitis of both lower extremities; vitamin B12 deficiency; hyperlipidemia. He had been admitted on 04/05 and discharged on 04/01. My understanding is that he went to rehab and then was discharged. He has been home with his 80-year-old mother who has been taking care of him for the last few days, but he has not been eating well. He came in with just generalized weakness. He has a history of hypertension, depression, hyperlipidemia and vitamin B12 deficiency. At this time he can shake his head up and down and can actually write a little bit with his right hand. He did not seem to have any localizing signs on exam. He said that he was not hurting anywhere by going up and down with his head. He said he was eating well, but he appears to be dehydrated. PAST MEDICAL HISTORY: Includes recent CVA, lacunar infarcts. MEDICATIONS: His medication list at discharge recently was 81 mg of aspirin daily; Lipitor 40 mg daily; Wellbutrin 150 mg in the morning; lisinopril 20 mg daily; metformin, it says p.o. b.i.d. in the old records, I do not know whether that is 1000 mg or 500 mg; he is also on vitamin B12, 1000 mcg daily. REVIEW OF SYSTEMS: He was to follow up in Dr. Garcia's office a month after discharge, but came in today. I could not get a good review of systems today. SOCIAL HISTORY: I asked him if he was and he said no. I asked him if he had ever been and he shook his head no. I could not get social history at this time. PHYSICAL EXAMINATION: VITAL SIGNS: Blood pressure is 115/70, respirations 19, pulse 90. At one time blood pressure went down to 96/59. When he first came in his blood pressure was 105/59, respirations 18, temperature 97.6 degrees Fahrenheit, oxygen saturation on room air was 93%. GENERAL: Weight is 215 pounds. He is 5 feet 11 inches tall. HEENT: He is normocephalic. PERRLA. Throat clear. Fundi not seen well due to constriction of pupils. NECK: Supple, without thyromegaly, lymphadenopathy or carotid bruits. LUNGS: Clear to auscultation and percussion without rhonchi, rales or wheezes. HEART: Regular rate and rhythm without murmurs, gallops or friction rubs. ABDOMEN: Soft, with active bowel sounds. No organomegaly or tenderness. NEUROLOGIC: The patient is very weak. I could not really tell any focal signs at this point. He is not speaking. EXTREMITIES: I could not feel good pulses in his feet. His feet are very cold. I do not know whether this has been looked at before, but the old reports did show that he had venous stasis. He had carotid artery studies when he was in the hospital last time and they were essentially normal. I did find arterial flow studies of his legs and they were normal, done on 03/26, so even though I do not feel pulses well, apparently he has them. GENITOURINARY: External genitalia exam deferred. RECTAL: Exam deferred. SKIN: Integument does show venous stasis of lower extremities. LABORATORY DATA: White count 16,860 with a hemoglobin of 16.5 and hematocrit 48. Glucose 135, potassium 4.1, sodium 137. Creatinine is 1.9 which is higher than what it was when he was in the hospital previously. BUN 71. Catheterized urine was negative. Toxicology screen was negative. ASSESSMENT: 1. Dehydration. 2. Status post cerebrovascular accident with dysphagia. 3. Secondary diagnoses of hypertension, hyperlipidemia and diabetes mellitus. PLAN: We will admit and give IV fluids. cc: Cricket Sylvester Jr, MD
[2019-04-22] MEDS: NS 1,000 ML IV SCH ×2 (19:27)
[2019-04-22] MEDS ORDERED: LIPITOR PO SCH (21:00)
[2019-04-22] MEDS ORDERED: ROCEPHIN 1 GM in NS 50 ML IV SCH (21:00)
[2019-04-22] MEDS ORDERED: ASPIRIN PO SCH (21:00)
[2019-04-23] MEDS: HUMULIN R SUBQ SCH ×5 (02:05→22:22)
[2019-04-23 06:38] LABS: BASO# 0.03 X1000 (0.0-0.2); BASO% 0.2 % (0.0-0.8); EOS# 0.32 X1000 (0.0-0.7); EOS% 2.4 % (0.0-10.0); HEMATOCRIT 42.7 % (42.0-52.0); HEMOGLOBIN 14.6 g/dL (14.0-18.0); IMM GRAN# 0.05 X1000 (0.0-0.04); IMM GRAN% 0.4 % (0.0-0.5); LYMPH# 3.85 X1000 (1.2-3.4); LYMPH% 28.3 % (20.5-51.1); MCH 29.5 PG (27-31); MCHC 34.2 g/dL (33-37); MCV 86.3 FL (81-99); MONO% 9.6 % (1.7-9.3); MPV 10.8 FL (7.4-10.4); NEUT# 8.04 X1000 (1.4-6.5); NEUT% 59.1 % (42.2-75.2); PLT 207 X1000 (130-400); RBC 4.95 XMIL (4.7-6.1); RDW 13.3 % (11.5-14.5); WBC 13.59 X1000 (4.8-10.8)
[2019-04-23 07:09] LABS: CALCIUM 8.9 mg/dL (8.8-10.2); CREATININE 1.5 mg/dL (0.7-1.2); POTASSIUM 3.7 mmol/L (3.5-5.1)
[2019-04-23] MEDS: NS 1,000 ML IV SCH ×5 (08:26→22:23)
[2019-04-23] MEDS ORDERED: WELLBUTRIN PO SCH (09:00)
[2019-04-23] MEDS ORDERED: VICON-C PO SCH (09:00)
[2019-04-23] MEDS: PEPCID IV SCH ×2 (10:17→22:21)
[2019-04-23] MEDS: VITAMIN D PO SCH (10:18)
[2019-04-23] MEDS: SANTYL OINT TOP SCH (18:40)
[2019-04-23] MEDS ORDERED: VANCOMYCIN IV PER PHARMACY MISC SCH (21:45)
--- NOTE | 2019-04-23 22:19 | PROGRESS NOTE ---
DATE: 04/23/2019 SUBJECTIVE: A 53-year-old, white gentleman admitted to the hospital with dehydration, not able to swallow. He has been declining, and I did see the H and P was done by Dr. Sylvester. He was discharged from this hospital on 04/01/2019 to [facility] due to right CVA with left-sided weakness and lacunar infarction with vascular dementia. Obviously, he is not doing very well since he left from the rehab. He was not able to talk and he is not eating, dehydrated, started on IV fluids. REVIEW OF SYSTEMS: Not able to obtain. OBJECTIVE: Vital signs: Temperature is 97 degrees, pulse is 77, blood pressure is 138/88. HEENT: Within normal limits. Neck: Supple. No lymphadenopathy. Chest: Bilateral air entry. Heart: Sounds are regular. Abdomen: Belly is soft, nontender. Good bowel sounds. Neurologic: Left- sided hemiparesis. Genitourinary: Diaper was placed. Skin: He has a stasis dermatitis in both legs and has a pressure ulcer on the left hip noted. INVESTIGATIONS: CBC: White cell count 13, hematocrit 42, platelets 207,000. Sodium 142, potassium 3.7, chloride 105, BUN 63, creatinine 1.5, glucose 172. Urinalysis is clear, and blood cultures reported 1/2 positive for gram-positive cocci. Chest x-ray: Left basilar atelectasis. ASSESSMENT AND PLAN: 1. Dehydration. Continue IV fluids and follow up on the CBC, BMP. 2. Deep venous thrombosis prophylaxis with Lovenox, GI prophylaxis with IV Protonix. 3. Right CVA with left hemiparesis, stable. 4. Chronic stasis dermatitis, stable. 5. Blood cultures are positive Plan is IV vancomycin. Follow up on cultures. 6. Type 2 diabetes. Sliding scale with insulin coverage. 7. Physical therapy evaluation, palliative care consult about the Living Will and his performance status is declining, and we will follow up. LEVEL OF DOCUMENTATION: 25 minutes. cc: MD Cricket Etienne Jr, MD MTDD
[2019-04-23] MEDS: SODIUM CHLORIDE 0.9% INJ SCH (22:22)
[2019-04-23] MEDS ORDERED: VANCOMYCIN 2,350 MG in NS 500 ML IV ONE (23:00)
[2019-04-24] MEDS: NS 1,000 ML IV SCH ×6 (06:00→21:41)
[2019-04-24 06:32] LABS: HEMATOCRIT 41.3 % (42.0-52.0); HEMOGLOBIN 14.3 g/dL (14.0-18.0); MCH 29.3 PG (27-31); MCHC 34.6 g/dL (33-37); MCV 84.6 FL (81-99); MPV 10.4 FL (7.4-10.4); PLT 193 X1000 (130-400); RBC 4.88 XMIL (4.7-6.1); RDW 12.9 % (11.5-14.5); WBC 10.83 X1000 (4.8-10.8)
[2019-04-24 06:33] LABS: BASO# 0.02 X1000 (0.0-0.2); BASO% 0.2 % (0.0-0.8); EOS# 0.27 X1000 (0.0-0.7); EOS% 2.5 % (0.0-10.0); IMM GRAN# 0.02 X1000 (0.0-0.04); IMM GRAN% 0.2 % (0.0-0.5); LYMPH# 2.98 X1000 (1.2-3.4); LYMPH% 27.5 % (20.5-51.1); MONO# 1.01 X1000 (0.11-0.59); MONO% 9.3 % (1.7-9.3); NEUT# 6.53 X1000 (1.4-6.5); NEUT% 60.3 % (42.2-75.2)
[2019-04-24 06:51] LABS: AGAP 10; BUN 35 mg/dL (8-22); CALCIUM 8.5 mg/dL (8.8-10.2); CHLORIDE 107 mmol/L (98-107); COSMO 291; CREATININE 0.9 mg/dL (0.7-1.2); ESTIMATED GFR > 60; GLUCOSE 100 mg/dL (70-104); POTASSIUM 3.3 mmol/L (3.5-5.1); SODIUM 142 mmol/L (136-145); TCO2 25 mmol/L (25-35)
[2019-04-24] MEDS: SANTYL OINT TOP SCH (10:43)
[2019-04-24] MEDS: VITAMIN D PO SCH (10:43)
[2019-04-24] MEDS: PEPCID IV SCH ×2 (10:43→21:33)
[2019-04-24] MEDS: LOVENOX SUBQ SCH (10:43)
[2019-04-24] MEDS: HUMULIN R SUBQ SCH ×3 (10:47→18:08)
--- NOTE | 2019-04-24 20:40 | PROGRESS NOTE ---
DATE: 04/24/2019 SUBJECTIVE: Patient is eating better and he needs some assistance. He is still bedridden. EXAMINATION: Temperature is 98 degrees, pulse 67, blood pressure is stable. Weakness on the left side and he is in diapers. INVESTIGATIONS: CBC: White cell count 10, hematocrit 41, platelets 193,000. Sodium 142, potassium 3.3, chloride 107, BUN 35, creatinine 0.9, glucose 145. Blood cultures 1 out of 2 positive for coagulase negative staph. ASSESSMENT AND PLAN: 1. Dehydration, getting better with intravenous fluids. 2. speech therapy and continue with assistance. 3. Deep venous thrombosis and gastrointestinal prophylaxis as per order sheet. 4. Blood culture with staph and will monitor the source of infection. Is on currently intravenous vancomycin. 5. We will slowly reconcile home medicines and follow up on the labs, and Palliative Care consult will be obtained. LEVEL OF DOCUMENTATION: 25 minutes. cc: MD Cricket Etienne Jr, MD MTDD
[2019-04-24] MEDS: VANCOMYCIN 1,650 MG in NS 250 ML IV SCH (21:32)
[2019-04-25] MEDS: VANCOMYCIN 1,650 MG in NS 250 ML IV SCH (00:51)
[2019-04-25] MEDS: NS 1,000 ML IV SCH ×2 (06:17→16:22)
[2019-04-25] MEDS: HUMULIN R SUBQ SCH ×5 (06:17→23:01)
[2019-04-25 07:15] LABS: BASO# 0.02 X1000 (0.0-0.2); BASO% 0.2 % (0.0-0.8); EOS# 0.27 X1000 (0.0-0.7); HEMATOCRIT 38.5 % (42.0-52.0); HEMOGLOBIN 13.3 g/dL (14.0-18.0); IMM GRAN# 0.03 X1000 (0.0-0.04); IMM GRAN% 0.3 % (0.0-0.5); LYMPH# 2.52 X1000 (1.2-3.4); LYMPH% 28.4 % (20.5-51.1); MCH 29.1 PG (27-31); MCHC 34.5 g/dL (33-37); MCV 84.2 FL (81-99); MONO# 0.88 X1000 (0.11-0.59); MONO% 9.9 % (1.7-9.3); MPV 10.4 FL (7.4-10.4); NEUT# 5.16 X1000 (1.4-6.5); NEUT% 58.2 % (42.2-75.2); PLT 185 X1000 (130-400); RBC 4.57 XMIL (4.7-6.1); RDW 12.7 % (11.5-14.5); WBC 8.88 X1000 (4.8-10.8)
[2019-04-25 08:00] LABS: AGAP 10; BUN 19 mg/dL (8-22); CALCIUM 8.7 mg/dL (8.8-10.2); CHLORIDE 104 mmol/L (98-107); COSMO 284; CREATININE 0.8 mg/dL (0.7-1.2); ESTIMATED GFR > 60; GLUCOSE 115 mg/dL (70-104); SODIUM 141 mmol/L (136-145); TCO2 27 mmol/L (25-35)
[2019-04-25] MEDS: LOVENOX SUBQ SCH (09:40)
[2019-04-25] MEDS: PEPCID IV SCH ×2 (09:40→21:08)
[2019-04-25] MEDS: VITAMIN D PO SCH (09:40)
[2019-04-25] MEDS ORDERED: POTASSIUM CHLORIDE 40 MEQ in NS 250 ML IV SCH (15:00)
--- NOTE | 2019-04-25 15:50 | PROGRESS NOTE ---
DATE: 04/25/2019 SUBJECTIVE: The patient is poor communicator, as Dr. Welsh said is laconic. He is still exhibiting some dementia, decreased performance status. He is almost bedridden with left-sided hemiparesis. No family is around. Appreciated palliative care consult. Portable DNR was obtained and he is eating with some assistance, is bedridden. EXAMINATION: Temperature is 98 degrees, pulse 63, blood pressure 170/84.HEENT: Within normal limits. Chest: Clear. Heart: Sounds are regular. Abdomen: Belly is soft, nontender. Neurologic: Left-sided deficits noted. INVESTIGATIONS: CBC: White cell count 8.8, hematocrit 38.5, platelets of 185,000. Sodium 140, potassium 3.0, chloride 104, BUN is 19, creatinine 0.8, glucose is 115. ASSESSMENT AND PLAN: 1. Vascular dementia. 2. Right cerebrovascular accident with left hemiparesis. 3. Dehydration. 4. Gram-positive cocci in the blood, most likely contamination. 5. Hypokalemia. 6. Diabetes. 7. Hypertension. PLAN OF CARE: 1. Do Not Resuscitate. 2. Decrease IV fluids, replace the potassium. 3. Deep venous thrombosis/gastrointestinal prophylaxis as per order sheet. 4. Reconcile home medications. 5. If he is afebrile, normal white cell count, stable, discontinue the IV vancomycin. LEVEL OF DOCUMENTATION: 25 minutes.. cc: MD Cricket Etienne Jr, MD
[2019-04-25] MEDS: SANTYL OINT TOP SCH (16:22)
[2019-04-25] MEDS: GLUCOPHAGE PO SCH (16:23)
[2019-04-25] MEDS: POTASSIUM CHLORIDE 40 MEQ in NS 250 ML IV SCH (16:26)
[2019-04-26] MEDS: VANCOMYCIN 2,000 MG in NS 500 ML IV SCH (00:11)
[2019-04-26] MEDS: POTASSIUM CHLORIDE 40 MEQ in NS 250 ML IV SCH (00:14)
[2019-04-26] MEDS: HUMULIN R SUBQ SCH ×4 (06:59→21:12)
[2019-04-26] MEDS: PEPCID IV SCH ×2 (08:44→21:14)
[2019-04-26] MEDS: VITAMIN D PO SCH (08:44)
[2019-04-26] MEDS: LOVENOX SUBQ SCH (08:44)
[2019-04-26] MEDS: PRINIVIL PO SCH (08:44)
[2019-04-26] MEDS: GLUCOPHAGE PO SCH ×2 (08:44→18:28)
[2019-04-26] MEDS: KLOR-CON PO SCH (08:45)
[2019-04-26] MEDS: NS 1,000 ML IV SCH (15:57)
[2019-04-26] MEDS: SANTYL OINT TOP SCH (15:57)
--- NOTE | 2019-04-26 17:27 | PROGRESS NOTE ---
DATE: 04/26/2019 SUBJECTIVE: The patient is confused. He has some pressure ulcer on the left side of the hip. Santyl ointment was given. He is eating very well. OBJECTIVE: Vital signs: Temperature is 97 degrees, pulse 60, blood pressure is stable. HEENT: Within normal limits. Chest: Bilateral air entry. Heart: Sounds are regular. Abdomen: Belly is soft, nontender. Good bowel sounds. Musculoskeletal: He has weakness on the left side. LABORATORY DATA: None reported. ASSESSMENT AND PLAN: 1. Dehydration is better. 2. Pressure ulcer on the left side, stasis dermatitis. Currently on IV vancomycin. 3. Restarted medicine for blood pressure, diabetes. 4. Depression, on Wellbutrin. Restarted his home medications and check the labs in the morning. We will discuss with the social security benefits interviewer. LEVEL OF DOCUMENTATION: 25 minutes. cc: MD Cricket Etienne Jr, MD
[2019-04-27] MEDS: VANCOMYCIN 2,000 MG in NS 500 ML IV SCH (00:20)
[2019-04-27 06:40] LABS: BASO# 0.03 X1000 (0.0-0.2); BASO% 0.3 % (0.0-0.8); EOS# 0.27 X1000 (0.0-0.7); EOS% 2.9 % (0.0-10.0); HEMATOCRIT 40.4 % (42.0-52.0); HEMOGLOBIN 14.2 g/dL (14.0-18.0); IMM GRAN# 0.04 X1000 (0.0-0.04); IMM GRAN% 0.4 % (0.0-0.5); LYMPH# 2.39 X1000 (1.2-3.4); LYMPH% 25.5 % (20.5-51.1); MCH 29.1 PG (27-31); MCHC 35.1 g/dL (33-37); MCV 82.8 FL (81-99); MONO# 1.14 X1000 (0.11-0.59); MONO% 12.2 % (1.7-9.3); MPV 9.8 FL (7.4-10.4); NEUT% 58.7 % (42.2-75.2); PLT 189 X1000 (130-400); RBC 4.88 XMIL (4.7-6.1); RDW 12.6 % (11.5-14.5); WBC 9.37 X1000 (4.8-10.8)
[2019-04-27 07:20] LABS: AGAP 10; BUN 9 mg/dL (8-22); CALCIUM 8.8 mg/dL (8.8-10.2); CHLORIDE 105 mmol/L (98-107); COSMO 282; CREATININE 0.9 mg/dL (0.7-1.2); ESTIMATED GFR > 60; GLUCOSE 100 mg/dL (70-104); POTASSIUM 3.4 mmol/L (3.5-5.1); SODIUM 142 mmol/L (136-145); TCO2 27 mmol/L (25-35)
[2019-04-27] MEDS: HUMULIN R SUBQ SCH ×3 (07:52→21:38)
[2019-04-27] MEDS: POTASSIUM CHLORIDE 20 MEQ/SWI 20 MEQ/100 ML IVPB IV SCH ×2 (09:00→12:12)
[2019-04-27] MEDS ORDERED: PRINIVIL PO SCH (09:00)
[2019-04-27] MEDS: VITAMIN D PO SCH (09:02)
[2019-04-27] MEDS: KLOR-CON PO SCH (09:03)
[2019-04-27] MEDS: PRINIVIL PO SCH (09:03)
[2019-04-27] MEDS: LOVENOX SUBQ SCH (09:03)
[2019-04-27] MEDS: GLUCOPHAGE PO SCH ×2 (09:03→18:44)
[2019-04-27] MEDS: PEPCID IV SCH ×2 (09:07→22:15)
[2019-04-27] MEDS: SANTYL OINT TOP SCH (18:44)
[2019-04-27] MEDS: NS 1,000 ML IV SCH (18:45)
[2019-04-27] MEDS: SODIUM CHLORIDE 0.9% INJ SCH (22:15)
[2019-04-28] MEDS: VANCOMYCIN 2,000 MG in NS 500 ML IV SCH (01:03)
[2019-04-28] MEDS: HUMULIN R SUBQ SCH ×3 (06:53→22:00)
[2019-04-28] MEDS: LOVENOX SUBQ SCH (09:52)
[2019-04-28] MEDS: PEPCID IV SCH ×2 (09:52→21:33)
[2019-04-28] MEDS: VITAMIN D PO SCH (09:52)
[2019-04-28] MEDS: PRINIVIL PO SCH (09:52)
[2019-04-28] MEDS: GLUCOPHAGE PO SCH ×2 (09:52→16:14)
[2019-04-28] MEDS: SANTYL OINT TOP SCH (09:52)
[2019-04-28] MEDS: KLOR-CON PO SCH (09:52)
[2019-04-28] MEDS: NS 1,000 ML IV SCH ×2 (20:29→21:33)
[2019-04-29] MEDS: HUMULIN R SUBQ SCH ×4 (06:41→22:11)
[2019-04-29] MEDS: VITAMIN D PO SCH (08:01)
[2019-04-29] MEDS: KLOR-CON PO SCH (08:02)
[2019-04-29] MEDS: PRINIVIL PO SCH (08:02)
[2019-04-29] MEDS: LOVENOX SUBQ SCH (08:02)
[2019-04-29] MEDS: GLUCOPHAGE PO SCH ×2 (08:06→17:13)
[2019-04-29] MEDS: SANTYL OINT TOP SCH (08:12)
[2019-04-29] MEDS: PEPCID IV SCH ×2 (08:14→19:49)
--- NOTE | 2019-04-29 12:43 | PROGRESS NOTE ---
DATE: 04/28/2019 SUBJECTIVE: The patient is nonverbal, not communicating very well. He is basically bedridden. OBJECTIVE: On exam, temperature 98 degrees. Vitals are stable. On physical exam, no change. ASSESSMENT AND PLAN: Depression and vascular dementia, CVA with right and left hemiparesis. Dehydration is improving. Current situation is stable, and no symptoms or signs of infection. Discontinue vancomycin. Electronic Systems Technician consult for rehab placement. Palliative Care consult was initiated. Prognosis is poor. LEVEL OF DOCUMENTATION: 25 minutes. cc: MD Cricket Etienne Jr, MD
--- NOTE | 2019-04-29 16:46 | PROGRESS NOTE ---
DATE: 04/29/2019 SUBJECTIVE: The patient is still sleeping. Declining of ADLs as well as instrumental activities. EXAMINATION: Vital Signs: Temp is 98, pulse 78, blood pressure 139/81. HEENT: Within normal limits. Neck: Supple. Chest: Clear. Heart: Sounds are regular. Belly is soft, nontender. Weakness on the left side noted. INVESTIGATIONS: CBC: White cell count 9.3, hematocrit 40, platelets 189,000. Sodium 142, potassium 3.4, chloride 105, BUN 9, creatinine 0.9, glucose 127. Blood cultures 1/2 positive. ASSESSMENT: 1. Right cerebrovascular accident with left hemiparesis. 2. Dehydration. 3. Hypokalemia. 4. Diabetes. 5. Hypertension. PLAN: 1. Replace the potassium. If he is afebrile, will discontinue vancomycin. 2. Continue present treatment. DVT, GI prophylaxis and Palliative Care consult was obtained. Continue the wound care on the left hip, stasis ulcers, and will make the disposition with social media marketing specialist and continue present treatment. LEVEL OF DOCUMENTATION: 25 minutes. cc: MD Cricket Etienne Jr, MD
[2019-04-29] MEDS: SODIUM CHLORIDE 0.9% INJ SCH (19:49)
[2019-04-29] MEDS: NS 1,000 ML IV SCH (19:49)
--- NOTE | 2019-04-30 00:41 | PROGRESS NOTE ---
DATE: 04/29/2019 SUBJECTIVE: The patient is nonverbal. Physical exam no change. Eating well. REVIEW OF SYSTEMS: None reported. OBJECTIVE: Vital signs: Temperature 98.4 degrees, pulse 78, blood pressure 135/79. HEENT: Within normal limits. Subtle weakness on the left side. Chest: Clear. Heart: Sounds are regular. Abdomen: Belly is soft, nontender. Neurologic: No obvious neurological deficits. ASSESSMENT AND PLAN: 1. Dehydration is better. 2. Vascular dementia. 3. Multiple strokes with right side and left-sided weakness, stable. 4. Contamination of coag-negative staph. Discontinue IV vancomycin. DISPOSITION: I have a meeting with his brother tomorrow. Social service consult. We will discuss over the disposition for him. He is progressively declining. Palliative care consult was initiated. We will follow up. cc: MD Cricket Etienne Jr, MD
[2019-04-30] MEDS: VITAMIN D PO SCH (08:28)
[2019-04-30] MEDS: LOVENOX SUBQ SCH (08:28)
[2019-04-30] MEDS: GLUCOPHAGE PO SCH ×2 (08:28→16:48)
[2019-04-30] MEDS: PRINIVIL PO SCH (08:28)
[2019-04-30] MEDS: KLOR-CON PO SCH (08:30)
[2019-04-30] MEDS: HUMULIN R SUBQ SCH ×2 (08:32→12:42)
[2019-04-30] MEDS: SANTYL OINT TOP SCH (08:34)
[2019-04-30] MEDS: PEPCID IV SCH (08:41)
--- NOTE | 2019-04-30 10:31 | DISCHARGE SUMMARY ---
ADMISSION DATE: 04/22/2019 DISCHARGE DATE: 04/30/2019 DISCHARGING DIAGNOSIS: Altered mental status due to metabolic encephalopathy due to dehydration. SECONDARY DIAGNOSES: 1. Multiinfarct vascular dementia. 2. Right cerebrovascular accident with left-sided hemiparesis due to lacunar infarcts. 3. Depression. 4. Hypertension. 5. Metabolic syndrome. 6. Stasis dermatitis in both legs. 7. Vitamin B12 deficiency. 8. Hyperlipidemia. 9. Onychomycosis of the toenails. 10. Stage I pressure ulcer of the left hip. BRIEF HISTORY: Please see the H and P that was done by Dr. Sylvester on 04/22/2019. In brief, he is a 53-year-old, white male recently discharged from the [facility] after he had a stroke on the right side with left hemiparesis. He had extensive workup done. Sent to [facility] for convalescence. He went home after 3 weeks of rehab and he was brought in with not being able to eat, confusion, declining of activities of daily living as well as instrumental activities. He was profoundly dehydrated. HOSPITAL COURSE: 1. He was given IV fluids. Followup hydration renal function test came back normal. 2. Potassium was low. Replaced. 3. He has a stasis ulcer on the left hip for which wound consult was obtained. Slowly improving with the Santyl ointment. 4. DVT and GI prophylaxis was given with Lovenox and Pepcid. 5. He is completely bedridden, nonverbal, depressed, slowly improving. 6. Continue the medical management for underlying risk factors for arthrosclerotic vascular disease. A1c below 7. LDL less than 70. Palliative care consult was obtained due to performance status declining. Portable Do Not Resuscitate was placed and apparently, family wants to go with aggressive treatment with [facility] for convalescence. 7. Initial blood cultures, one out of two positive for coagulase-negative staphylococcus, most likely contaminant. Subsequently, vancomycin was discontinued. LABS: At the time of discharge on 04/27/2019, CBC: White cell count 9.3, hematocrit 40, platelet count 189,000. Sodium 142, potassium 3.4, chloride 105, BUN 9, creatinine 0.9, glucose 141. Chest x-ray was stable on 04/22/2019. DISCHARGE INSTRUCTIONS: 1. Care of the skin, bladder, and bowels. Wound consult for chronic stasis in both legs as well as pressure ulcer on the left hip. 2. Aggressive physical therapy, occupational therapy. 3. ADA diet. 4. Metformin 500 p.o. b.i.d., lisinopril 20 daily, Lipitor 40 daily, aspirin 81 daily, Ribazole 1 tablet daily, Wellbutrin 150 daily, vitamin D3 2000 units daily, potassium 20 mEq daily, Santyl ointment as directed for the left hip pressure ulcer, Lovenox subcutaneous daily for about 2 weeks unless he is nonambulatory, follow the guidelines. 5. Discussed the plan of care with the family and discharged to the [facility]. cc: MD Cricket Etienne Jr, MD
[2019-04-30 17:43] VITALS: BP 158/78
== END 2019-04-30 18:10 | DRG 640 ==
LOC: ED 12:23 → 4N 17:32
PROVIDERS: ADMIT Emergency Medicine; ATTEND Internal Medicine
CPT/HCPCS: 70450; 71020; 71046; 80048; 80053; 80101; 80202; 80301; 80307; 80324; 80345; 80346; 80353; 80358; 80361; 80365; 81001; 82550; 82553; 82948; 83992; 84484; 85025; 85610; 85730; 87040; 93005; 96360; 97162; 97530; 99285; A9270; G0431; G0434; G0479; G0480; J1650; J3370; J3480; J7030; J7040; J7050; S0028; XXXXX

== ENCOUNTER 2019-09-01 09:25 | Inpatient (IN) ==
[2019-09-01] MEDS ORDERED: NS 1,000 ML IV ONE (09:46)
[2019-09-01] MEDS ORDERED: TYLENOL PR ONE (09:46)
--- NOTE | 2019-09-01 09:46 | PROVIDER DOCUMENTATION ---
HPI-General Adult - General Chief Complaint: Altered Mental Status Stated Complaint: LOW GRADE FEVER Time Seen by Provider: 09/01/19 09:27 Source: EMS Unable to obtain history due to:: altered Allergies/Adverse Reactions: Patient Allergies Allergy/AdvReac Type Severity Reaction Status Date / Time No Known Allergies Allergy Verified 04/22/19 12:45 Home Medications: Home Medication List Medication Instructions Recorded Confirmed Last Taken Type LISINOpril [Prinivil] 20 mg PO DAILY #30 tablet 04/01/13 09/01/19 08/31/19 07:00 Rx 20 mg Metformin [Glucophage] 500 mg PO BID CC #60 tablet 04/01/13 09/01/19 08/31/19 17:00 Rx 500 mg ATORVAstatin [Lipitor] 40 mg PO QHS tab 04/01/19 09/01/19 08/31/19 21:00 Rx 40 mg Aspirin 81 mg PO HS chewtab 04/01/19 09/01/19 08/31/19 21:00 Rx 81 mg B1/B2/B3/B5/B6/FA/B12/C [Ribozel 1 ea PO DAILY #90 cap 04/01/19 09/01/19 08/31/19 09:00 Rx 159 mg Capsule] 1 tab Bupropion [Wellbutrin] 150 mg PO QAM tab 04/01/19 09/01/19 08/31/19 09:00 Rx 150 mg Cholecalciferol (Vitamin D3) 2,000 unit PO DAILY 04/22/19 09/01/19 08/31/19 09:00 History [Vitamin D3] 1 tablet Potassium Chloride E.r. [Klor-Con] 20 meq PO DAILY 04/22/19 09/01/19 08/31/19 09:00 History 20 meq Acetaminophen [Tylenol] 650 mg PO Q6HR PRN 09/01/19 09/01/19 08/31/19 08:00 H istory 650 mg Arginine/Glutamine/Calcium Bmb 1 ea PO BID 09/01/19 09/01/19 08/31/19 21:00 Hi story [Zechariah Packet] 1 pkt Guaifenesin E.r. [Mucinex] 600 mg PO BID 09/01/19 09/01/19 08/31/19 21:00 History 600 mg Ibuprofen 400 mg PO Q6HR PRN 09/01/19 09/01/19 08/24/19 01:00 History 400 mg Multivitamin [Multivitamins] 1 ea PO DAILY 09/01/19 09/01/19 08/31/19 09:00 History 1 tab - History of Present Illness -Gen Adult Nature of Presenting Problems: 53 yr old M, hx of CVA with residual deficits, presents via EMS from [facility] with reports that he is more altered than usual. Pt is currently non-verbal, though he appears awake, and is responsive to painful stimuli. Per some charts that accompany the pt; he is usually verbal speech has been noted to be slightly slurred, but generally clear. However, at the time of this documentation, the pt is not responding to any of my commands. Review of Systems - Adult - REVIEW OF SYSTEMS - ADULT ROS:: unobtainable per condition Constitutional: reports: other (unobtainable per condition) Eyes: reports: other (unobtainable per condition) Ears, Nose, Mouth & Throat: reports: other (unobtainable per condition) Cardiovascular: reports: other (unobtainable per condition) Respiratory: reports: other (unobtainable per condition) Gastrointestinal: reports: other (unobtainable per condition) Genitourinary: reports: other (unobtainable per condition) Musculoskeletal: reports: other (unobtainable per condition) Integumentary: reports: other (unobtainable per condition) Neurological: reports: other (unobtainable per condition) Psychiatric: reports: other (unobtainable per condition) Past History - Adult - PAST MEDICAL HISTORY-ADULT Review of Records: reports: Old Records Reviewed, Nursing Assessment Review Neurological: reports: CVA, stroke deficits Physical Exam-General - PHYSICAL EXAM-ADULT Initial Vital Signs Reviewed: Yes - CONSTITUTIONAL General Appearance: other (non-responsive at time of exam) - EYES Eyes: other (pupils sluggish, pt will not track; is responsive to eyelash stimulation) - HEAD, EARS, NOSE, MOUTH & THROAT HENMT: normocephalic/atraumatic - RESPIRATORY Respiratory: lungs clear - CARDIOVASCULAR Cardiovascular: regular rate, rhythm - GASTROINTESTINAL (ABDOMEN) Abdominal Exam: normal bowel sounds, soft - MUSCULOSKELETAL Extremity: no pedal edema - SKIN Integumentary: diaphoresis - NEUROLOGIC Neurologic: other (pt not awake or responding to commands, moves in response to painful stimuli) Progress - PLAN OF CARE/RESULTS Result Diagrams: 09/01/19 10:25 09/01/19 10:25 - EKG 1 Time of EKG reading by physician:: 09:51 EKG Read and Signed by:: Stephon Márquez EKG Interpretation (*Must complete 3 of following elements*): Abnormal Rate: 94 Rhythm: sinus Rosenberg: right (rightward axis) CA Interval: normal ST Wave: normal Prior EKG Comparison: changes noted Comments: no PVCs on this EKG; pt does have rightward axis on prior EKG - XRAY 1 XRAY Study: Chest Impression: See EMR Report XRAY Interpretation: no acute disease - CT/MRI 1 CT Study: Head Impression: See EMR Report Comparison with other Films: changes noted CT Results: new subacute-chronic left thalamic lacunar infarct - CONSULTS/PCP/HOSPITALIST Notification #1 *Consult/PCP/Hospitalist*: Dr. Garcia Time Discussed: 11:39 Consult Disposition: Admit Departure - Departure Date of Disposition Decision: 09/01/19 Time of Disposition Decision: 13:29 DIAGNOSIS: Hypernatremia, JEROME (acute kidney injury) Disposition: ADMITTED INPATIENT 09 Certified Medical Emergency: Emergent Condition: Serious - Critical Care Note This patient required my direct & personal management of CC.: No Attestation - Physician/ NETO Attestation Patient care was provided by Advanced Practice Provider:: No The physician spent face to face time with patient:: Yes Advanced Practice Provider documentation review:: Supervising physician onsite and consulted in the evaluation and care of this patient. The physician did have a face to face encounter with the patient.
--- NOTE | 2019-09-01 10:10 | Diag Imaging Result Doc PS360 ---
CHEST-1 VIEW - 09/01/2019 INDICATION: ams/sepsis COMPARISON: 04/22/2019 FINDINGS: There is mild left hemidiaphragm elevation. Lung volumes are somewhat low. No infiltrates or edema. No pneumothorax or pleural effusion. Heart size and pulmonary vascularity is normal. IMPRESSION: Mildly low lung volumes but otherwise no acute disease. Electronically signed by Daniel Flynn 09/01/2019 10:08 AM
--- NOTE | 2019-09-01 10:27 | Diag Imaging Result Doc PS360 ---
CT HEAD W/O CONTRAST - 09/01/2019 INDICATION: Altered Mental Status COMPARISON: 04/22/2019 FINDINGS: Stable diffuse cerebral atrophy. Stable extensive encephalomalacia at the posterior right occipital lobe compatible with an old right posterior cerebral artery territory infarction. There is a new hypodensity in the left thalamus centrally compatible with a subacute to chronic lacunar infarction. Stable advanced periventricular white matter chronic microvascular ischemia. There is also extensive microvascular ischemia of the nilesh. The skull is intact. The sinuses, mastoids, and middle ears are clear. IMPRESSION: There is a new, subacute to chronic left thalamus lacunar. Otherwise stable extensive chronic ischemic changes of the brain. This exam was performed using automated exposure control, adjustment of mA or kV according to patient size, and/or use of iterative reconstruction technique Electronically signed by Daniel Flynn 09/01/2019 10:24 AM
[2019-09-01 10:39] LABS: BASO# 0.04 X1000 (0.0-0.2); BASO% 0.3 % (0.0-0.8); EOS# 0.04 X1000 (0.0-0.7); EOS% 0.3 % (0.0-10.0); HEMOGLOBIN 15.3 g/dL (14.0-18.0); IMM GRAN# 0.05 X1000 (0.0-0.04); IMM GRAN% 0.4 % (0.0-0.5); LYMPH# 3.23 X1000 (1.2-3.4); LYMPH% 24.8 % (20.5-51.1); MCH 28.9 PG (27-31); MCHC 31.9 g/dL (33-37); MCV 90.6 FL (81-99); MONO# 0.98 X1000 (0.11-0.59); MONO% 7.5 % (1.7-9.3); MPV 9.9 FL (7.4-10.4); NEUT# 8.67 X1000 (1.4-6.5); NEUT% 66.7 % (42.2-75.2); PLT 243 X1000 (130-400); RDW 14.1 % (11.5-14.5); WBC 13.01 X1000 (4.8-10.8)
[2019-09-01 10:47] LABS: INR 1.14; PROTIME 14.8 Seconds (11.0-16.0)
[2019-09-01 10:48] LABS: PTT 31.6 Seconds (22.3-41.8)
--- NOTE | 2019-09-01 10:52 | EKG Report ---
Test Performed on : 09/01/2019 09:50:43 AM Test Reason : AMS Blood Pressure : / mmHG Vent. Rate : 094 BPM Atrial Rate : 094 BPM P-R Int : 142 ms QRS Dur : 098 ms QT Int : 380 ms P-R-T Axes : 070 107 071 degrees QTc Int : 475 ms Normal sinus rhythm. Rightward axis Borderline ECG When compared with ECG of 22-APR-2019 12:43, premature ventricular complexes. are no longer present Unconfirmed Result
[2019-09-01 11:15] LABS: URINE SOURCE CATH
[2019-09-01 11:22] LABS: ALB/GLOB RATIO 1.2; ALBUMIN 4.3 g/dL (3.5-5.0); CREATININE 1.6 mg/dL (0.7-1.2); POTASSIUM 4.2 mmol/L (3.5-5.1); TOTAL BILIRUBIN 0.93 mg/dL (0.20-1.00); TOTAL PROTEIN 7.8 g/dL (6.3-8.3)
[2019-09-01 11:24] LABS: BILIRUBIN URINE NEGATIVE (NEGATIVE); BLOOD URINE MODERATE (NEGATIVE); COLOR ORANGE; GLUCOSE URINE NEGATIVE (NEGATIVE); KETONE URINE 20 mg/dL (NEGATIVE); LEUKOCYTES URINE LARGE (NEGATIVE); NITRITE URINE NEGATIVE (NEGATIVE); PH URINE 5.5; PROTEIN URINE 70 mg/dL (NEGATIVE); TURBIDITY URINE TURBID (CLEAR); UROBILINOGEN URINE 3 mg/dL (NORMAL)
[2019-09-01 11:31] LABS: UR EPITHELIAL CELLS <10 /HPF (<10); URINE BACTERIA 2+ /HPF; URINE RBC TNTC /HPF (<10); URINE WBC TNTC /HPF (<10)
[2019-09-01 11:34] LABS: URINE CASTS NONE SEEN; URINE CRYSTALS NONE SEEN; URINE SMALL ROUND CELLS NONE SEEN; URINE YEAST PRESENT
[2019-09-01] MEDS ORDERED: ROCEPHIN 1 GM in NS 50 ML IV ONE (13:16)
[2019-09-01] MEDS ORDERED: SODIUM CHLORIDE 0.9% INJ SCH (20:30)
[2019-09-01] MEDS ORDERED: NEXIUM IV SCH (20:30)
[2019-09-01] MEDS ORDERED: HUMULIN R SUBQ SCH (21:00)
[2019-09-01] MEDS: ZOSYN 3.375 GM in NS 50 ML IV SCH (21:26)
[2019-09-01] MEDS: D5 1/2 NS + KCL 10 MEQ 1,000 ML IV SCH (21:26)
[2019-09-01] MEDS: SODIUM CHLORIDE 0.9% INJ SCH (22:27)
[2019-09-01] MEDS: PROTONIX IV SCH (22:27)
[2019-09-01] MEDS: LOVENOX SUBQ SCH (23:40)
--- NOTE | 2019-09-01 23:52 | HISTORY AND PHYSICAL ---
CHIEF COMPLAINT: Altered mental status, low-grade fever, obtundation. HPI: A 53-year-old white male living in custodial. Was brought in by EMS from [facility] rehab that he is more confused, nonverbal and he appears to be not following with verbal commands. The patient was seen in the emergency room. Basically admitted to the hospital with altered mental status due to metabolic encephalopathy with underlying prior stroke and he was also dehydrated. He has a low-grade fever with redness in the testicles area. Unger was placed. Started on IV antibiotics. No family member is around here. MEDICATIONS LISTED: Lisinopril 20 mg daily, metformin 500 p.o. b.i.d., Lipitor 40 mg daily, aspirin 81 mg daily, B1, B6 complex vitamins 1 tablet daily, Wellbutrin 150 in the morning, vitamin D3 2000 units daily, Tylenol as needed, Mucinex 600 b.i.d., ibuprofen as needed, multivitamin 1 tablet as needed. ALLERGIES: Not known. PAST MEDICAL HISTORY: Metabolic syndrome, hypertension, stasis dermatitis in both legs, vitamin B12 deficiency, multiinfarct vascular dementia, right CVA with left hemiparesis, hyperlipidemia, onychomycosis of toenails, history of pressure ulcer on the left hip. PAST SURGICAL HISTORY: None reported. SOCIAL HISTORY: Living in custodial. No smoking. No alcohol. Decreased activities of daily living. Single. FAMILY HISTORY: Father at the age of 72, congestive heart failure. Mom is alive and now he has a brother who brought him to my office 6 months ago. REVIEW OF SYSTEMS: Not able to obtain. Patient is confused. EXAMINATION: Temperature is 97.9, pulse 88, blood pressure is 134/78, 95% on room air, 205 pounds.HEENT: Atraumatic, normocephalic. Pupils equal, reactive to light. TMs are normal. Nose and throat within normal limits. Neck: Supple. No lymphadenopathy and dry mucous membranes. Chest: Bilateral air entry. Heart: Sounds are regular. Belly: Soft, nontender. Unger was placed. Stasis dermatitis in both legs. Not able to assess neurological exam. LABS: CBC: White cell count 13, hematocrit 48, platelets 243,000. PT 14, INR 1.1. Sodium 150, potassium 4.2, chloride 108, BUN 56, creatinine 1.6, glucose 150. Cardiac enzymes, proBNP were normal. Urinalysis positive for infection. Blood cultures, urine cultures are pending. Chest x- ray reported low lung volumes. No acute disease. EKG normal sinus rhythm, nothing acute. CT head, new subacute chronic thalamus lacunar infarct. Chronic ischemic changes of the brain. ASSESSMENT AND PLAN: 1. A 53-year-old white gentleman admitted to the hospital with a right stroke with left hemiparesis, now developed new onset of mental status changes with multifactorial recurrent lacunar infarct. Plan is now hyponatremic dehydration. D5 half-normal saline with potassium. 2. Urinary tract infection with cellulitis of the scrotum. IV antibiotics with Zosyn. 3. Deep venous thrombosis, gastrointestinal prophylaxis with Lovenox and Protonix. Repeat the labs in the morning. Living Will, DNR. I will consider palliative consult. If there is no quality of life will discuss with the family and will follow up. cc: Vineet Garcia MD MTDD
[2019-09-02] MEDS: ZOSYN 3.375 GM in NS 50 ML IV SCH ×4 (02:20→20:13)
[2019-09-02] MEDS: HUMULIN R SUBQ SCH ×4 (06:18→20:20)
[2019-09-02] MEDS ORDERED: VANCOMYCIN IV PER PHARMACY MISC SCH (06:30)
[2019-09-02 07:00] LABS: HEMATOCRIT 46.6 % (42.0-52.0); HEMOGLOBIN 14.7 g/dL (14.0-18.0); MCH 29.1 PG (27-31); MCHC 31.5 g/dL (33-37); MCV 92.3 FL (81-99); MPV 9.8 FL (7.4-10.4); RBC 5.05 XMIL (4.7-6.1); RDW 14.2 % (11.5-14.5); WBC 13.09 X1000 (4.8-10.8)
[2019-09-02 07:33] LABS: ALB/GLOB RATIO 1.2; CALCIUM 9.1 mg/dL (8.8-10.2); CREATININE 1.4 mg/dL (0.7-1.2); POTASSIUM 3.6 mmol/L (3.5-5.1); TOTAL BILIRUBIN 0.64 mg/dL (0.20-1.00); TOTAL PROTEIN 7.4 g/dL (6.3-8.3)
[2019-09-02] MEDS ORDERED: VANCOMYCIN 2,000 MG in NS 500 ML IV ONE (08:00)
[2019-09-02] MEDS ORDERED: CALMOSEPTINE OINTMENT TOP PRN (09:21)
[2019-09-02] MEDS: STERILE WATER INJ. INJ PRN (10:42)
[2019-09-02] MEDS: GEODON IM PRN ×2 (10:42→21:32)
[2019-09-02] MEDS: D5 1/2 NS + KCL 10 MEQ 1,000 ML IV SCH (19:30)
[2019-09-02] MEDS: PROTONIX IV SCH (20:18)
[2019-09-02] MEDS: SODIUM CHLORIDE 0.9% INJ SCH (20:18)
--- NOTE | 2019-09-02 21:16 | PROGRESS NOTE ---
DATE: 09/02/2019 SUBJECTIVE: The patient is a little bit agitated, not able to follow with verbal commands. He is completely bedridden. The nurse was at bedside. No family was around. He is getting around some while pulling the IV. PHYSICAL EXAMINATION: Temperature is 98 degrees, pulse 76 vitals are stable blood pressure is 134/79.HEENT: Obtunded, confused, open the eyes. Chest is clear. Heart sounds are regular. Belly is soft, obese, nontender. Unger was placed. Decreased scrotal redness and edema. Bilateral venous stasis dermatitis changes noted. DIAGNOSTIC STUDIES: White cell count 13.0, hematocrit 46, platelets 211. Sodium 147, potassium 3.7, BUN 50, creatinine 1.4, glucose 170. Urine cultures positive for infection, showing gram-positive cocci. ASSESSMENT: 1. Altered mental status due to metabolic encephalopathy. 2. Hyponatremic dehydration. 3. Possible urinary tract infection. 4. Multi-infarct dementia, right stroke with left hemiparesis . PLAN: 1. Continue IV Zosyn. Follow up on urine cultures. 2. Azotemia is improving. 3. DVT and GI prophylaxes as per order sheet. 4. We will use the Geodon as needed for agitation. 5. Living will: DNR. We will follow up. LEVEL OF DOCUMENTATION: 35 minutes. cc: Vineet Garcia MD
[2019-09-02] MEDS: LOVENOX SUBQ SCH (23:01)
[2019-09-03] MEDS: ZOSYN 3.375 GM in NS 50 ML IV SCH ×4 (02:19→21:03)
[2019-09-03] MEDS: GEODON IM PRN ×3 (04:07→22:23)
[2019-09-03] MEDS: HUMULIN R SUBQ SCH ×4 (06:02→21:05)
[2019-09-03 07:47] LABS: HEMATOCRIT 43.5 % (42.0-52.0); HEMOGLOBIN 14.1 g/dL (14.0-18.0); MCH 29.6 PG (27-31); MCHC 32.4 g/dL (33-37); MCV 91.4 FL (81-99); MPV 10.1 FL (7.4-10.4); RBC 4.76 XMIL (4.7-6.1); RDW 14.1 % (11.5-14.5); WBC 10.96 X1000 (4.8-10.8)
[2019-09-03] MEDS: D5 1/2 NS + KCL 10 MEQ 1,000 ML IV SCH ×2 (08:40→21:02)
[2019-09-03 08:42] LABS: AGAP 11; ALB/GLOB RATIO 1.2; ALBUMIN 3.8 g/dL (3.5-5.0); ALKALINE PHOSPHATASE 74 U/L (32-122); BUN 38 mg/dL (8-22); CALCIUM 9.2 mg/dL (8.8-10.2); CHLORIDE 116 mmol/L (98-107); COSMO 314; CREATININE 1.2 mg/dL (0.7-1.2); ESTIMATED GFR > 60; GLUCOSE 157 mg/dL (70-104); GOT 14 U/L (10-34); GPT 14 U/L (10-44); POTASSIUM 3.5 mmol/L (3.5-5.1); SODIUM 152 mmol/L (136-145); TCO2 25 mmol/L (25-35); TOTAL BILIRUBIN 0.53 mg/dL (0.20-1.00); TOTAL PROTEIN 6.9 g/dL (6.3-8.3)
[2019-09-03] MEDS: STERILE WATER INJ. INJ PRN ×2 (15:46→22:23)
[2019-09-03] MEDS: VANCOMYCIN 1,400 MG in NS 250 ML IV SCH (15:56)
[2019-09-03] MEDS: SODIUM CHLORIDE 0.9% INJ SCH (21:04)
[2019-09-03] MEDS: PROTONIX IV SCH (21:04)
[2019-09-03] MEDS: LOVENOX SUBQ SCH (22:23)
--- NOTE | 2019-09-03 22:33 | PROGRESS NOTE ---
DATE: 09/03/2019 SUBJECTIVE: The patient is obtunded. He is agitated last night. Unger was pulled out, replaced with a lot of swelling and no quality of life. PHYSICAL EXAMINATION: Vital signs: Temperature is 97 degrees. Vitals are stable. He is completely sedated. Physical exam no change. 98% on room air. INVESTIGATIONS: White cell count 10, hematocrit 43, platelets 202,000. Sodium 152, potassium 3.5, BUN 38, creatinine 1.2. Urine culture showed Staphylococcus aureus resistant to penicillin, sensitive to oxacillin. ASSESSMENT AND PLAN: 1. Hypernatremic dehydration. Continue IV D5 half-normal saline. Azotemia is improving. 2. Will place the condom catheter. 3. Cellulitis of the scrotum, improving. 4. Methicillin-sensitive Staphylococcus aureus urinary tract infection. Slowly we will change to vancomycin. 5. Living will, DO NOT RESUSCITATE. Quality [facility] care is poor[facility]iative Care consult initiated. LEVEL OF DOCUMENTATION: 25 minutes. cc: Vineet Garcia MD
[2019-09-04] MEDS: ZOSYN 3.375 GM in NS 50 ML IV SCH ×4 (03:14→21:36)
[2019-09-04] MEDS: GEODON IM PRN ×2 (04:10→10:44)
[2019-09-04] MEDS: HUMULIN R SUBQ SCH ×4 (06:17→21:37)
[2019-09-04 07:39] LABS: MCH 29.3 PG (27-31); MCHC 32.5 g/dL (33-37); MCV 90.3 FL (81-99); MPV 10.1 FL (7.4-10.4); RBC 4.43 XMIL (4.7-6.1); RDW 13.8 % (11.5-14.5); WBC 9.01 X1000 (4.8-10.8)
[2019-09-04 08:11] LABS: AGAP 8; ALB/GLOB RATIO 1.2; ALBUMIN 3.5 g/dL (3.5-5.0); ALKALINE PHOSPHATASE 64 U/L (32-122); BUN 23 mg/dL (8-22); CALCIUM 8.3 mg/dL (8.8-10.2); CHLORIDE 111 mmol/L (98-107); COSMO 303; ESTIMATED GFR > 60; GLUCOSE 323 mg/dL (70-104); GOT 13 U/L (10-34); GPT 13 U/L (10-44); SODIUM 144 mmol/L (136-145); TCO2 25 mmol/L (25-35); TOTAL BILIRUBIN 0.56 mg/dL (0.20-1.00); TOTAL PROTEIN 6.5 g/dL (6.3-8.3)
[2019-09-04] MEDS: D5 1/2 NS + KCL 10 MEQ 1,000 ML IV SCH (10:13)
[2019-09-04] MEDS: VANCOMYCIN 1,400 MG in NS 250 ML IV SCH (11:10)
--- NOTE | 2019-09-04 19:54 | PROGRESS NOTE ---
DATE: 09/04/2019 SUBJECTIVE: patient was agitated last night, gave Geodon, completely obtunded. There is no quality of life and he is getting some IV fluids. Unger was pulled out. PHYSICAL EXAMINATION: Temperature is 97.9 degrees, pulse 80, blood pressure is running high.HEENT: Within normal limits. Obtunded. Chest: Clear. Heart: Sounds are regular. Belly: Soft. LAB: Microbiology, urine is methicillin sensitive Staph. Blood cultures are negative. INVESTIGATIONS: White cell count 9, hematocrit 40, platelets of 173,000. Sodium 144, potassium 4, BUN 23, creatinine 1.0, glucose 132 and slowly improving. If he started eating by mouth will discuss with the palliative care consult with the family, care of the skin, bladder and bowels. ASSESSMENT AND PLAN: 1. Multi-infarct dementia. 2. Right stroke with left cerebrovascular accident. 3. Deconditioning. 4. Palliative Performance Scale score less than 50%. 5. Hyponatremic, dehydration. 6. Methicillin sensitive Staphylococcus aureus urinary tract infection. Plan of care is added antibiotics with IV vancomycin along with IV Zosyn. 7. Continue IV fluids, DVT, GI prophylaxis. LEVEL OF DOCUMENTATION: 25 minutes. cc: Vineet Garcia MD
[2019-09-04] MEDS: PROTONIX IV SCH (21:36)
[2019-09-04] MEDS: SODIUM CHLORIDE 0.9% INJ SCH (21:37)
[2019-09-04] MEDS: LOVENOX SUBQ SCH (21:44)
[2019-09-05] MEDS: D5 1/2 NS + KCL 10 MEQ 1,000 ML IV SCH ×2 (00:49→15:13)
[2019-09-05] MEDS: ZOSYN 3.375 GM in NS 50 ML IV SCH ×4 (02:22→19:59)
[2019-09-05] MEDS: HUMULIN R SUBQ SCH ×4 (06:14→22:48)
--- NOTE | 2019-09-05 09:56 | PROGRESS NOTE ---
DATE: 09/05/2019 SUBJECTIVE: The patient is awake with his eyes open but not responsive otherwise. He is a DNR level 1 at this time. OBJECTIVE: Vital signs: Blood pressure is 137/87, temperature 98.7 degrees Fahrenheit, pulse 65, respirations 18. HEENT: Normocephalic. Lungs: Clear to auscultation and percussion without rhonchi, rales, or wheezes. Heart: Regular rate and rhythm without murmurs, gallops, or friction rubs. Abdomen: Soft with active bowel sounds. Neurological: The patient is confused. ASSESSMENT: The patient has a subacute or chronic left thalamic lacunar infarct. He is not moving his legs for me. He is moving his arms some. He does have a urinary tract infection with Staph aureus and is treated for that. His sodium yesterday was 144, had been as high as 150 before that. He is diabetic as well. PLAN: We will continue supportive care. He is on IV antibiotics. cc: MD Vineet Trevino Jr, MD
[2019-09-05 11:43] LABS: URINE SOURCE CATH
[2019-09-05 11:46] LABS: BILIRUBIN URINE NEGATIVE (NEGATIVE); BLOOD URINE LARGE (NEGATIVE); COLOR ORANGE; GLUCOSE URINE TRACE mg/dL (NEGATIVE); KETONE URINE NEGATIVE (NEGATIVE); LEUKOCYTES URINE NEGATIVE (NEGATIVE); NITRITE URINE NEGATIVE (NEGATIVE); PH URINE 5.5; PROTEIN URINE TRACE mg/dL (NEGATIVE); SP GRAVITY URINE 1.021; TURBIDITY URINE HAZY (CLEAR); UROBILINOGEN URINE NORMAL (NORMAL)
[2019-09-05 11:47] LABS: UR EPITHELIAL CELLS <10 /HPF (<10); URINE BACTERIA NEGATIVE /HPF; URINE RBC TNTC /HPF (<10); URINE WBC <10 /HPF (<10)
[2019-09-05] MEDS: VANCOMYCIN 1,800 MG in NS 250 ML IV SCH (13:39)
--- NOTE | 2019-09-05 16:01 | CONSULTATION ---
DATE OF CONSULTATION: 09/05/2019 CONSULTING PHYSICIAN: Dr. Cricket Sylvester REASON FOR CONSULTATION: Hematuria. HISTORY OF PRESENT ILLNESS: A 53-year-old male, who is nonverbal secondary to history of stroke and hence records are obtained from electronic chart review and discussion with nursing staff. He reportedly inadvertently pulled his Unger catheter out with the balloon in place which prompted gross hematuria. He also has a Staph aureus UTI from 09/01/2019 per nursing staff. There was blood in the diaper, although today his urine has cleared. PAST MEDICAL HISTORY: Vascular dementia, history of CVA, metabolic syndrome, hypertension, venous stasis in his lower extremities. PAST SURGICAL HISTORY: None per records. SOCIAL HISTORY: Resides in a retirement. No record of tobacco or alcohol or illicit drugs. FAMILY HISTORY: No records of malignancies noted. ALLERGIES: No known drug allergies. HOME MEDICATIONS: Tylenol, ibuprofen, Mucinex, vitamin D, Wellbutrin, aspirin, Lipitor, metformin, lisinopril. REVIEW OF SYSTEMS: Unobtainable secondary to patient's nonverbal status. PHYSICAL EXAMINATION: Vital Signs: T 97.9 degrees, P 71, BP 142/105. General: Pleasant male who is in no acute distress. HEENT: Normocephalic, atraumatic. Cardiovascular: Regular rhythm. Pulmonary: Decreased bilateral breath sounds. Poor inspiratory effort. Abdomen: Protuberant, nontender to palpation. : Uncircumcised male with redundant foreskin which retracts, meatus is patent. There is straw-colored urine in his diaper. Testes are atrophic bilaterally, but no masses noted. Perineum is without crepitans, fluctuance. Rectal: Digital rectal examination is deferred at this time as patient just had a bowel movement and had feces. Extremities: Vascular insufficiency noted in bilateral lower extremities. Neurologic Exam: Unobtainable secondary to status. PERTINENT LABORATORY DATA: White cell count is 9000, creatinine is 1.0. Urinalysis shows [id number]-count red cells, no evidence of bacteria and epithelial cells. PERTINENT IMAGES: None. ASSESSMENT/PLAN: A 53-year-old male, who had traumatic Unger removal with subsequent gross hematuria, as well as a recent urinary tract infection. He obviously cannot give a history. Given the recent traumatic Unger experience and the urinary tract infection, I would recommend being conservative and not pursue an evaluation with computed tomography urogram or cystoscopy. I would recheck his urine in several days and, if still persistent blood, then consider evaluation. PLAN: 1. No further urologic evaluation needed at this time. 2. I recommend rechecking his urinalysis in several days. 3. Please call if questions. cc: MD Vineet Booth MD
[2019-09-05] MEDS: SODIUM CHLORIDE 0.9% INJ SCH (20:00)
[2019-09-05] MEDS: PROTONIX IV SCH (20:00)
[2019-09-05] MEDS: LOVENOX SUBQ SCH (22:47)
[2019-09-06] MEDS: ZOSYN 3.375 GM in NS 50 ML IV SCH ×4 (03:29→20:23)
[2019-09-06] MEDS: D5 1/2 NS + KCL 10 MEQ 1,000 ML IV SCH ×2 (04:29→17:59)
[2019-09-06] MEDS: HUMULIN R SUBQ SCH ×4 (06:19→20:23)
--- NOTE | 2019-09-06 12:06 | PROGRESS NOTE ---
DATE: 09/06/2019 SUBJECTIVE: The patient is not communicative due to his previous strokes. OBJECTIVE: Vital signs: Blood pressure is 160/105, respirations 18, pulse 68, temperature 96.8 degrees Fahrenheit. HEENT: He is normocephalic. Lungs: Clear to auscultation and percussion without rhonchi, rales, or wheezes. Heart: Regular rate and rhythm without murmurs, gallops, friction rubs. Abdomen: Soft. Active bowel sounds. No organomegaly or tenderness. Neurologic: The patient is awake but not communicative. He had some blood in his urine. He had come in for urinary tract infection. Found out later that nurses said that he had pulled his Unger catheter out. We did a urinalysis yesterday, and he still had blood in his urine, though very little pus now, so I think he has responded to his IV antibiotics. We asked Dr. Cannon to come see him because of the hematuria, but at the time he started seeing him, the urine was already clear, and he felt like it was probably just traumatic and no further workup was needed. ASSESSMENT: 1. Urinary tract infection. 2. Previous cerebrovascular accident. 3. Trauma induced hematuria, is better. PLAN: We will continue support with IV antibiotics. cc: MD Vineet Trevino Jr, MD
[2019-09-06] MEDS: VANCOMYCIN 1,800 MG in NS 250 ML IV SCH (14:16)
[2019-09-06] MEDS: LOVENOX SUBQ SCH ×2 (20:23→23:23)
[2019-09-06] MEDS: SODIUM CHLORIDE 0.9% INJ SCH (20:23)
[2019-09-06] MEDS: PROTONIX IV SCH (20:23)
[2019-09-07] MEDS: ZOSYN 3.375 GM in NS 50 ML IV SCH ×4 (02:25→22:50)
[2019-09-07] MEDS: HUMULIN R SUBQ SCH ×4 (06:51→22:51)
[2019-09-07] MEDS: D5 1/2 NS + KCL 10 MEQ 1,000 ML IV SCH ×2 (08:30→22:50)
[2019-09-07] MEDS: VANCOMYCIN 1,800 MG in NS 250 ML IV SCH (18:11)
--- NOTE | 2019-09-07 21:54 | PROGRESS NOTE ---
DATE: 09/07/2019 SUBJECTIVE: The patient is completely confused, not eating well, agitated. No family is around here. Hematuria resolved. Unger was taken out. Currently he is on diapers. REVIEW OF SYSTEMS: None reported. OBJECTIVE: Vital signs: Temperature is 99, pulse is 76, blood pressure 169/90. HEENT Exam: Within normal limits. Chest: Bilateral air entry. Cardiovascular: Heart sounds are regular. Abdomen: Belly is soft and nontender. INVESTIGATIONS: None reported today. ASSESSMENT AND PLAN: 1. Altered mental status due to delirium. 2. Metabolic encephalopathy. 3. Dehydration. 4. Hematuria. Continue intravenous fluids, deep venous thrombosis prophylaxis and gastrointestinal prophylaxis. Currently receiving intravenous vancomycin and Zosyn for underlying cellulitis and methicillin Staphylococcus aureus infection. Living will, Do Not Resuscitate. Plan of care needs to contact the caregiver about possible percutaneous endoscopic gastrostomy placement versus palliative care and repeat the labs in the morning. LEVEL OF DOCUMENTATION: 25 minutes. cc: Vineet Garcia MD
[2019-09-07] MEDS: PROTONIX IV SCH (22:50)
[2019-09-07] MEDS: SODIUM CHLORIDE 0.9% INJ SCH (22:50)
[2019-09-07] MEDS: LOVENOX SUBQ SCH (22:51)
[2019-09-08] MEDS: ZOSYN 3.375 GM in NS 50 ML IV SCH ×4 (02:51→21:39)
[2019-09-08] MEDS: D5 1/2 NS + KCL 10 MEQ 1,000 ML IV SCH ×3 (05:47→21:39)
[2019-09-08 06:28] LABS: BASO# 0.02 X1000 (0.0-0.2); BASO% 0.2 % (0.0-0.8); EOS# 0.19 X1000 (0.0-0.7); EOS% 2.3 % (0.0-10.0); HEMOGLOBIN 13.5 g/dL (14.0-18.0); IMM GRAN# 0.02 X1000 (0.0-0.04); IMM GRAN% 0.2 % (0.0-0.5); LYMPH# 2.65 X1000 (1.2-3.4); LYMPH% 31.5 % (20.5-51.1); MCHC 33.8 g/dL (33-37); MONO# 0.79 X1000 (0.11-0.59); MONO% 9.4 % (1.7-9.3); MPV 10.2 FL (7.4-10.4); NEUT# 4.74 X1000 (1.4-6.5); NEUT% 56.4 % (42.2-75.2); PLT 196 X1000 (130-400); RBC 4.65 XMIL (4.7-6.1); RDW 13.7 % (11.5-14.5); WBC 8.41 X1000 (4.8-10.8)
[2019-09-08] MEDS: HUMULIN R SUBQ SCH ×4 (06:31→21:43)
[2019-09-08 07:53] LABS: CREATININE 2.1 mg/dL (0.7-1.2)
[2019-09-08 08:26] LABS: CALCIUM 9.1 mg/dL (8.8-10.2); POTASSIUM 3.3 mmol/L (3.5-5.1)
[2019-09-08] MEDS: POTASSIUM CHLORIDE 20 MEQ/SWI 20 MEQ/100 ML IVPB IV SCH ×2 (10:15→14:48)
--- NOTE | 2019-09-08 20:45 | PROGRESS NOTE ---
DATE: 09/08/2019 SUBJECTIVE: The patient has altered early mental status, not improving. He is agitated. He cannot take by mouth. He had vascular dementia. He is prone for dehydration. He is not taking any medicines. Appreciated palliative care consult. I spoke to the brother, who told me to go ahead and do a PEG for nutrition and giving the medications. Unger was discontinued. PHYSICAL EXAMINATION: Vital Signs: Temperature is 98. Blood pressure is running high. HEENT: Dry mucous membranes, poor mouth hygiene. Chest: Bilateral air entry. Cardiovascular: Heart sounds are regular. Abdomen: Belly is soft, nontender, and he is in diapers. INVESTIGATIONS: White cell count 8.4, hematocrit 40, platelets 196. Sodium 149, potassium 3.3, chloride 109, BUN 18, creatinine 2.1, glucose 143. ASSESSMENT: 1. Altered mental status due to vascular dementia. 2. Hyponatremic dehydration. 3. Hematuria. Discontinued Unger. 4. Elevated creatinine at 2.0. 5. Methicillin-sensitive urinary tract infection. PLAN OF CARE: 1. Increase IV fluids. 2. Replace the potassium. 3. Check a bladder scan since the creatinine is going high. 4. Geodon for agitation. 5. IV Zosyn for methicillin-sensitive Staphylococcus aureus, and discontinue vancomycin and repeat the labs in the morning. 6. Consult with Dr. Torres for PEG placement, since the family agreed upon it. They will come and signed the consent. 7. Living will/DO NOT RESUSCITATE. LEVEL OF DOCUMENTATION: 25 minutes. cc: Vineet Garcia MD
[2019-09-08] MEDS: SODIUM CHLORIDE 0.9% INJ SCH (21:39)
[2019-09-08] MEDS: PROTONIX IV SCH (21:39)
[2019-09-08] MEDS: GEODON IM PRN (22:06)
[2019-09-08] MEDS: STERILE WATER INJ. INJ PRN (22:07)
[2019-09-09] MEDS: LOVENOX SUBQ SCH ×2 (00:22→23:00)
[2019-09-09] MEDS: ZOSYN 3.375 GM in NS 50 ML IV SCH ×3 (02:40→17:53)
[2019-09-09 05:45] LABS: BASO# 0.01 X1000 (0.0-0.2); BASO% 0.1 % (0.0-0.8); EOS# 0.16 X1000 (0.0-0.7); EOS% 1.9 % (0.0-10.0); HEMATOCRIT 41.5 % (42.0-52.0); HEMOGLOBIN 14.1 g/dL (14.0-18.0); IMM GRAN# 0.02 X1000 (0.0-0.04); IMM GRAN% 0.2 % (0.0-0.5); LYMPH# 2.79 X1000 (1.2-3.4); LYMPH% 33.1 % (20.5-51.1); MCH 29.2 PG (27-31); MCV 85.9 FL (81-99); MONO# 0.93 X1000 (0.11-0.59); MPV 10.3 FL (7.4-10.4); NEUT# 4.53 X1000 (1.4-6.5); NEUT% 53.7 % (42.2-75.2); PLT 186 X1000 (130-400); RBC 4.83 XMIL (4.7-6.1); RDW 14.1 % (11.5-14.5); WBC 8.44 X1000 (4.8-10.8)
[2019-09-09] MEDS: D5 1/2 NS + KCL 10 MEQ 1,000 ML IV SCH ×3 (05:50→21:46)
[2019-09-09 06:21] LABS: RANDOM VANCOMYCIN 17.4 ug/mL (5.0-80)
[2019-09-09 06:27] LABS: CALCIUM 8.6 mg/dL (8.8-10.2); CREATININE 2.1 mg/dL (0.7-1.2)
[2019-09-09] MEDS: HUMULIN R SUBQ SCH ×4 (06:29→21:46)
[2019-09-09] MEDS: POTASSIUM CHLORIDE 20 MEQ/SWI 20 MEQ/100 ML IVPB IV SCH ×2 (10:40→13:16)
--- NOTE | 2019-09-09 21:01 | PROGRESS NOTE ---
DATE: 09/09/2019 SUBJECTIVE: The patient is still agitated, not following with verbal commands. He is awake and sometimes agitated, not eating well. Mother was at bedside. The patient is getting bathing by the nurses aides. REVIEW OF SYSTEMS: None reported. PHYSICAL EXAMINATION: Temperature 97.9 degrees, pulse 69, blood pressure 140/91.HEENT: Dry mucous membranes. Neck: Supple. Chest: Clear. Heart: Sounds are regular. Abdomen: Belly is soft, nontender. Scaphoid. Unger was placed and he is emptying the urine in the diaper. INVESTIGATIONS: CBC: White cell count 8.5, hematocrit 41, platelets 186,000. Sodium 152, potassium 3.0, chloride 112, BUN 18, creatinine 2.1. ASSESSMENT AND PLAN: 1. Hyponatremic dehydration due to unable to eat. Increasing IV fluids to 125 an hour. 2. Hypokalemia. Replace the potassium. 3. Vascular dementia. 4. Decreased performance status. PLAN: Discontinue IV vancomycin. Continue IV Zosyn. Geodon as needed for nausea. Deep vein thrombosis and gastrointestinal prophylaxis as per order sheet. Repeat the labs in the morning. As per the family, ready for percutaneous endoscopic gastrostomy placement for nourishment and feeding and giving medications. Check the bladder scan for postvoid residual urine. Gastroenterology consult was obtained with Dr. Torres. LEVEL OF DOCUMENTATION: 25 minutes. cc: Vineet Garcia MD
[2019-09-09] MEDS: SODIUM CHLORIDE 0.9% INJ SCH (21:46)
[2019-09-09] MEDS: PROTONIX IV SCH (21:46)
[2019-09-10] MEDS: ZOSYN 3.375 GM in NS 50 ML IV SCH ×3 (00:52→11:50)
--- NOTE | 2019-09-10 03:32 | GASTROENTEROLOGY CONSULTATION ---
DATE: 09/09/2019 REASON FOR CONSULTATION: Dysphagia, PEG tube evaluation. HISTORY OF PRESENT ILLNESS: Mr. Elgin Hutchinson is a 53-year-old gentleman with a past medical history of multiple CVAs with left hemiparesis, vascular dementia, hypertension, and vitamin B12 deficiency, who presented from a half-way with altered mental status, low-grade fever, and worsening of mentation. The patient was on antibiotics on presentation. Workup of his altered mental status showed new subacute to chronic left thalamus lacunar infarct, with stable chronic ischemic changes. Chest x-ray was negative for pneumonia. Cultures showed coagulase-negative Staph in the blood likely contaminant and UA with Staph aureus, which is also likely colonization. REVIEW OF SYSTEMS: Unable to be obtained as the patient is nonresponsive and not follow commands. No family is atthe bedside to give history. History is obtained primarily for chart. PAST MEDICAL HISTORY: As per HPI. The patient also has a history of metabolic syndrome, venous stasis of the lower extremities, prior decubitus ulcer of the hip. PAST SURGICAL HISTORY: None per records. SOCIAL HISTORY: No smoking, alcohol or drug use per report. FAMILY HISTORY: Unable to obtain. ALLERGIES: No known drug allergies. HOME MEDICATIONS: Tylenol, ibuprofen, Mucinex, vitamin D, Wellbutrin, aspirin, Lipitor, metformin, lisinopril. PHYSICAL EXAMINATION: Vital Signs: Temperature is 96.7 degrees, heart rate of 57, respiratory rate is 19, blood pressure is 169/89, O2 saturation is 99% on room air. General: The patient is awake with eyes open; however, he does not follow any commands or respond to verbal stimuli. HEENT: Sclerae are anicteric. Mucous membranes are dry with poor oral care. Neck: Supple. No JVD. Cardiac: Regular rate and rhythm. No murmurs. Lungs: Clear to auscultation bilaterally anteriorly. Abdomen: Soft, nontender, nondistended. Normoactive bowel sounds. No rebound or guarding. Extremities: No clubbing, cyanosis or edema. Neurologic: The patient is not moving his extremities spontaneously, appears to be in almost a vegetative state. LABORATORY DATA: White count of 8.4, hemoglobin of 14.1, platelets of 186,000. Sodium is 152, potassium is 3.0, chloride of 112, bicarbonate of 25, BUN of 18, creatinine of 2.1 from a baseline of less than 1, glucose of 138. Blood cultures 1/2 with coagulase-negative Staph. The urine culture with Staph aureus. IMAGING: Head CT with a subacute to chronic left thalamus lacunar infarct, chronic ischemic changes of the brain. Chest x-ray mild low lung volumes, but otherwise no acute disease. ASSESSMENT AND PLAN: Mr. Elgin Hutchinson is a 53-year-old gentleman with multiple CVAs in the past with vascular dementia, who presented with a question of low-grade fevers and worsening mental status likely from his underlying vascular dementia and CVAs in the past. Workup for his altered mental status was unrevealing for pneumonia. Cultures showed coagulase-negative Staph likely contaminant. Urine culture showed Staph aureus, which is likely colonization. He is on Zosyn, IV fluids with D5 1/2 normal saline and potassium, PPI 40 mg IV daily and Geodon. GI is consulted for a PEG tube placement per family request. Exam is notable for poor oral care and probable vegetative state; however, unknown baseline neurologic exam. He does not respond to verbal or noxious stimuli. The mother was at bedside and per report the mother and son are both in agreement with PEG tube placement. His abdomen is benign appearing. The patient is NPO. We will plan on PEG tube placement with Dr. Torres tomorrow. He will need Ancef 2 g given in the OR. Thank you for this consultation. Please call with any questions or concerns. I agree with palliative care treatment and evaluation. cc: Vineet Garcia MD
[2019-09-10] MEDS: GEODON IM PRN (04:46)
[2019-09-10] MEDS: STERILE WATER INJ. INJ PRN (04:47)
[2019-09-10] MEDS: D5 1/2 NS + KCL 10 MEQ 1,000 ML IV SCH ×3 (05:00→22:17)
[2019-09-10] MEDS: HUMULIN R SUBQ SCH ×4 (06:02→22:17)
[2019-09-10 07:35] LABS: BASO# 0.01 X1000 (0.0-0.2); BASO% 0.1 % (0.0-0.8); EOS# 0.15 X1000 (0.0-0.7); EOS% 1.6 % (0.0-10.0); HEMATOCRIT 39.9 % (42.0-52.0); HEMOGLOBIN 13.4 g/dL (14.0-18.0); IMM GRAN# 0.02 X1000 (0.0-0.04); IMM GRAN% 0.2 % (0.0-0.5); LYMPH# 2.58 X1000 (1.2-3.4); LYMPH% 27.7 % (20.5-51.1); MCHC 33.6 g/dL (33-37); MCV 86.4 FL (81-99); MONO# 0.78 X1000 (0.11-0.59); MONO% 8.4 % (1.7-9.3); MPV 10.3 FL (7.4-10.4); NEUT# 5.78 X1000 (1.4-6.5); PLT 189 X1000 (130-400); RBC 4.62 XMIL (4.7-6.1); WBC 9.32 X1000 (4.8-10.8)
[2019-09-10 07:48] LABS: CALCIUM 8.9 mg/dL (8.8-10.2); CREATININE 1.9 mg/dL (0.7-1.2); POTASSIUM 2.8 mmol/L (3.5-5.1)
--- NOTE | 2019-09-10 08:51 | PROGRESS NOTE ---
DATE: 09/10/2019 SUBJECTIVE: The patient is still in moribund state not talking, and he is losing weight. He has not been eating for the last few weeks. He is high risk for aspiration. He is not mentally competent to tolerate the food. Family decided for PEG and Dr. Torres is planning to do this today. REVIEW OF SYSTEMS: None reported. PHYSICAL EXAMINATION: Vital Signs: Temperature is 97.6 degrees, pulse 75, blood pressure is 165/57. HEENT: Dry mucous membranes. Chest: Clear. Heart: Sounds are regular. Abdomen: Belly is soft, nontender. He is in diapers and stasis dermatitis changes noted. INVESTIGATIONS: 1. CBC: White cell count 9.3, hematocrit 39, platelets 189. 2. Sodium 147, potassium 2.8, chloride 108. 3. BUN 16, creatinine 1.9. ASSESSMENT AND PLAN: 1. Altered mental status due to dehydration. 2. Vascular dementia. 3. Cerebrovascular accident On the right side and not able to eat. Plan is increasing IV fluids 125 mL/hour. Replace the potassium. Check mag and phosphate in the morning. Continue DVT, GI prophylaxis. Cellulitis of the scrotum. Methicillin-sensitive Staphylococcus aureus UTI on IV Zosyn. Planning to do the PEG this afternoon by Dr. Torres. We will follow up. Living will DNR. LEVEL OF DOCUMENTATION: 25 minutes. cc: Vineet Garcia MD
[2019-09-10] MEDS ORDERED: XYLOCAINE-MPF 2% ONE (10:30)
[2019-09-10] MEDS ORDERED: DIPRIVAN 1% ONE (10:30)
[2019-09-10] MEDS ORDERED: ROBINUL ONE (10:30)
--- NOTE | 2019-09-10 11:19 | ENDOSCOPY OPERATIVE NOTE ---
[facility] ENDOSCOPY OPERATIVE NOTE , EGD WITH PEG PROCEDURE REPORT EXAM DATE: 09/10/2019 PATIENT NAME: Elgin Hutchinson MR #: [id number] BIRTHDATE: 1965 ATTENDING: Finn Torres MD STATUS: inpatient [employer] HELPER: Sara Cervantes and Henry Fox INDICATIONS: The patient is a 53 yr old male here for an EGD with PEG due to Vascular Dementia, Dysp hagia. PROCEDURE PERFORMED: EGD w/ percutaneous gastrostomy tube placement MEDICATIONS: Per Anesthesia TOPICAL ANESTHETIC: none CONSENT: The patient understands the risks and benefits of the procedure and understands that these r isks include, but are not limited to: sedation, allergic reaction, infection, perforation and/or bleeding. Alternative means of evaluation and treatment include, among others: physical exam, x-rays, and/or surgical intervention. The patient elects to proceed with this endoscopic procedure. HISTORY AND PHYSICAL: 09/10/2019 DESCRIPTION OF PROCEDURE: During pre-op preparation period all mechanical and medical equipment was c hecked for proper function. Hand hygiene and appropriate measures for infection prevention was taken. After the risks, benefits and alternatives of the procedure were thoroughly explained, Informed consent was verified, confirmed and timeout was successfully executed by the treatment team. The patient was anesthetized with topical anesthesia and the endoscope was introduced through the mouth and advanced to the second portion of the duodenum. The instrument was slowly withdrawn as the mucosa was fully examined. ESOPHAGUS: The mucosa of the esophagus appeared normal. STOMACH: Gastritis (inflammation) was found in the gastric antrum. DUODENUM: Mild duodenal inflammation was found in the duodenal bulb. The duodenal mucosa showed no abnormalities in the 2nd part of the duodenum. The stomach was then inflated with air, and by a combination of transillumination and manual palpatio n, the site for the gastrostomy tube placement was selected and marked on the anterior abdominal wall. The skin of the a nterior abdomen was surgically prepped and draped with sterile towels. Utilizing strict sterile technique, the selected site was then anesthetized with 1% xylocaine by inje ction into the skin and subcutaneous tissue. A 1 cm incision was made through the skin and subcutaneous tissue, and the needle/cannula assembly was then passed through the abdominal wall and through the anterior wall of the stomach, carleen ntaining visualization with the endoscope. A snare device previously placed through the instrument channel wa s then opened and placed around the cannula, the needle was removed, and the insertion wire was passed through the abhishek west and into the stomach lumen. The snare was then loosened from the cannula, and repositioned to snare the insertion wire. The snare was then pulled up to the endoscope distal tip, and the scope was then withdrawn bringing with it the snare and insertion wire. The insertion wire was then released from the snare, and then loop-attached to the Jonas Cook 24 Fr gastrostomy tube. Using the "pull technique", the G-tube was then pulled into place by traction on the insertion wire a t the abdominal wall end. The G-tube insertion site was then cleansed once again, and the external bolster was placed over the tube to secure it to the abdominal wall. A sterile dressing was then applied, and the procedure term inated. Internal Bumper was visualized with repeat EGD and external Bumper was noted at 2 cms. Retroflexion was performed in the stomach and revealed no abnormalities. The gastroscope was then sl owly withdrawn and removed. ADVERSE EVENT: There were no complications. IMPRESSIONS: 1. The mucosa of the esophagus appeared normal 2. Duodenitis noted in the bulb; Mild gastritis noted in the gastric antrum. Successful PEG placeme nt 24 Fr by Pull technique. RECOMMENDATIONS: 1. Begin an anti-reflux lifestyle: avoid acidic foods and drinks (like coffee a nd soda), do not lie down three hours after eating, elevate the head of your bed 6 to 9 inches, stop smokiing and redu ce weight if needed. 2. Nutrition consultation for tube feeds recommendations; Abdominal Binder all the time; Aspiration Precautions; Change Dressing at PEG site every day with Bacitracin ointment for 1 week; Call us with any questions or if there are any problems. Start Protonix 40 mg QD for 3 months for treatment of Gastritis and duodenitis. REPEAT EXAM: Finn Torres MD eSigned: Finn Torres MD 09/10/2019 11:19 AM cc: CPT CODES: 19510 Upper gastrointestinal endoscopy including esophagus, stomach, and either the du odenum and/or jejunum as appropriate; with directed placement of percutaneous gastrostomy tube ICD CODES: 535.60 Duodenitis (without mention of hemorrhage) 535.50 Unspecified gastritis and gastroduodenitis (without hemorrhage) The ICD and CPT codes recommended by this software are interpretations from the data that the [facility] staff has captured with the software. The verification of the translation of this report to the ICD and CPT co erick and modifiers is the sole responsibility of the health care institution and practicing physician where this report was generated. [employer] will not be held responsible for the validity of the ICD and CPT codes i ncluded on this report. A assumes no liability for data contained or not contained herein. CPT is a registered tra demark of the [employer] [place] [employer]. PATIENT NAME: Elgin Hutchinson MR#: [id number]
[2019-09-10] MEDS: POTASSIUM CHLORIDE 20 MEQ/SWI 20 MEQ/100 ML IVPB IV SCH ×2 (12:55→15:12)
[2019-09-10] MEDS: SODIUM CHLORIDE 0.9% INJ SCH (22:17)
[2019-09-10] MEDS: PROTONIX IV SCH (22:17)
[2019-09-11] MEDS: ZOSYN 3.375 GM in NS 50 ML IV SCH ×5 (01:03→17:05)
[2019-09-11] MEDS: D5 1/2 NS + KCL 10 MEQ 1,000 ML IV SCH ×3 (05:15→21:48)
[2019-09-11] MEDS: HUMULIN R SUBQ SCH ×4 (06:20→21:43)
[2019-09-11 07:01] LABS: BASO# 0.02 X1000 (0.0-0.2); BASO% 0.2 % (0.0-0.8); EOS# 0.16 X1000 (0.0-0.7); EOS% 1.4 % (0.0-10.0); HEMOGLOBIN 13.5 g/dL (14.0-18.0); IMM GRAN# 0.03 X1000 (0.0-0.04); IMM GRAN% 0.3 % (0.0-0.5); LYMPH# 3.39 X1000 (1.2-3.4); LYMPH% 30.2 % (20.5-51.1); MCH 29.3 PG (27-31); MCHC 33.8 g/dL (33-37); MONO# 0.85 X1000 (0.11-0.59); MONO% 7.6 % (1.7-9.3); MPV 10.1 FL (7.4-10.4); NEUT# 6.78 X1000 (1.4-6.5); NEUT% 60.3 % (42.2-75.2); PLT 193 X1000 (130-400); WBC 11.23 X1000 (4.8-10.8)
[2019-09-11 07:32] LABS: PHOSPHORUS 2.4 mg/dL (2.7-4.5); PREALBUMIN 22.6 mg/dL (20-40)
[2019-09-11 07:48] LABS: CALCIUM 9.3 mg/dL (8.8-10.2); CREATININE 1.9 mg/dL (0.7-1.2); MAGNESIUM 1.8 mg/dL (1.5-2.7); POTASSIUM 3.3 mmol/L (3.5-5.1)
[2019-09-11] MEDS ORDERED: POTASSIUM PHOSPHATE 30 MEQ in NS 250 ML IV ONE (08:25)
--- NOTE | 2019-09-11 11:21 | PROVIDER PROGRESS NOTE ---
Progress Note S: Patient had restraints placed last night as he was trying to pull on PEG tube. He currently has abdominal binder in place. Unable to obtain ROS. Per RN, patient has urinary retention and iqbal is being placed. O: Last Vital Signs Temp 98.0 F 09/11/19 07:09 Pulse 59 L 09/11/19 07:09 Resp 16 09/11/19 07:09 BP 168/83 09/11/19 07:09 Pulse Ox 94 L 09/11/19 08:51 Height 6 ft Weight 205 lb 8 oz GEN: NAD HEENT: anicteric NECK: supple CV: RRR, no murmurs PULM: CTA anteriorly ABD: PEG site c/d/i no induration or erythema, BS, ND EXT: no cce NEURO: deferred LABS: 09/11/19 09/11/19 06:20 06:20 WBC 11.23 H Hgb 13.5 L Plt Count 193 Sodium 150 H Potassium 3.3 L D Chloride 111 H Carbon Dioxide 27 BUN 14 Creatinine 1.9 H Glucose 119 H EGD 09/10/2019 ESOPHAGUS: The mucosa of the esophagus appeared normal. STOMACH: Gastritis (inflammation) was found in the gastric antrum. DUODENUM: Mild duodenal inflammation was found in the duodenal bulb. The duodenal mucosa showed no abnormalities in the 2nd part of the duodenum. ASSESSMENT AND PLAN: Mr. Elgin Hutchinson is a 53-year-old gentleman with multiple CVAs in the past with vascular dementia who presented with worsening AMS found to have volume depletion, JEROME, and hypernatremia. Subacute CVA on imaging. GI consulted for PEG tube placement given dysphagia and AMS. PEG placed yesterday without complications. Gastritis and duodenitis noted. PEG ok to use for enteral nutrition. Refer to clerical warehouse worker for supplementation recommendations. Continue PPI. Ok to give via PEG. Continue routine PEG care. Will sign off. Please call with questions.
[2019-09-11 13:06] LABS: URINE SOURCE CATH
[2019-09-11 13:27] LABS: BILIRUBIN URINE NEGATIVE (NEGATIVE); BLOOD URINE MODERATE (NEGATIVE); COLOR ORANGE; GLUCOSE URINE NEGATIVE (NEGATIVE); KETONE URINE NEGATIVE (NEGATIVE); LEUKOCYTES URINE SMALL (NEGATIVE); NITRITE URINE NEGATIVE (NEGATIVE); PH URINE 6.5; PROTEIN URINE TRACE mg/dL (NEGATIVE); SP GRAVITY URINE 1.009; TURBIDITY URINE TURBID (CLEAR); UR EPITHELIAL CELLS <10 /HPF (<10); URINE BACTERIA NEGATIVE /HPF; URINE RBC TNTC /HPF (<10); URINE WBC <10 /HPF (<10); UROBILINOGEN URINE NORMAL (NORMAL)
[2019-09-11 13:37] LABS: URINE CASTS NONE SEEN; URINE CRYSTALS NONE SEEN; URINE SMALL ROUND CELLS NONE SEEN; URINE YEAST NONE SEEN
--- NOTE | 2019-09-11 19:20 | PROGRESS NOTE ---
DATE: 09/11/2019 SUBJECTIVE: The patient is still in moribund state. Bladder scan is 400 mL. He is not emptying the bladder. Unger was taken out. I appreciate Dr. Torres. Percutaneous endoscopic gastrostomy was placed. OBJECTIVE: On exam patient is obtunded. Low-grade fever. Vitals are stable 94% on room air. He is completely with no quality of life in a vegetative state. Family wants the PEG placement. INVESTIGATIONS: White cell count 11, hematocrit 40, platelets 193,000. Sodium 150, potassium 3.3, BUN 14, creatinine 1.9. Prealbumin 22.6. ASSESSMENT AND PLAN: 1. Bladder retention: Continue on Unger. 2. Hyponatremia due to dehydration. Intravenous fluids. Status post percutaneous endoscopic gastrostomy. Dietary consult was initiated. 3. Next, replace the potassium and continue IV antibiotics. Will continue over the weekend. We will start with tube feedings. Keep the head end of the bed 45 degree elevation and follow up on the electrolytes on a daily basis. 4. Living Will, DNR. Prognosis is poor. 5. Level of documentation: 25 minutes. cc: Vineet Garcia MD
[2019-09-11] MEDS: SODIUM CHLORIDE 0.9% INJ SCH (21:48)
[2019-09-11] MEDS: PROTONIX IV SCH (21:48)
[2019-09-12] MEDS: ZOSYN 3.375 GM in NS 50 ML IV SCH ×4 (02:24→21:08)
[2019-09-12] MEDS: HUMULIN R SUBQ SCH ×3 (06:02→21:08)
[2019-09-12 08:29] LABS: ALBUMIN 3.9 g/dL (3.5-5.0); PHOSPHORUS 3.2 mg/dL (2.7-4.5)
[2019-09-12 08:31] LABS: CALCIUM 9.2 mg/dL (8.8-10.2); CREATININE 1.7 mg/dL (0.7-1.2); POTASSIUM 3.8 mmol/L (3.5-5.1)
[2019-09-12] MEDS: D5 1/2 NS + KCL 10 MEQ 1,000 ML IV SCH ×2 (09:11→18:19)
--- NOTE | 2019-09-12 12:18 | PROGRESS NOTE ---
DATE: 09/12/2019 Mr. Hutchinson is a 53-year-old white gentleman and known case of CVA with right-sided hemiplegia. He is aphasic. He had a duodenitis and gastritis and Dr. Torres put a percutaneous gastrostomy tube and he is getting the feeding which he is tolerating very well. OBJECTIVE: Abdomen: Is soft, nontender. Lungs: Are clear. He had bladder retention with Unger catheter. He gets recurrent hyponatremia. At present his electrolytes are normal. BUN is 14, creatinine 1.7. White count is 11.23, hemoglobin 13.5, hematocrit is 40. Urinalysis revealed too numerous RBCs. Culture is still pending. His phosphorus level was 3.2. OVERALL CONDITION: Stable. Vital signs are stable. -3 cc: MD Vineet Argueta MD
[2019-09-12] MEDS: PROTONIX IV SCH (21:07)
[2019-09-12] MEDS: SODIUM CHLORIDE 0.9% INJ SCH (21:07)
[2019-09-13] MEDS: ZOSYN 3.375 GM in NS 50 ML IV SCH ×4 (01:14→20:12)
[2019-09-13] MEDS: D5 1/2 NS + KCL 10 MEQ 1,000 ML IV SCH ×3 (01:14→16:07)
[2019-09-13] MEDS: HUMULIN R SUBQ SCH ×4 (05:59→20:12)
[2019-09-13 08:12] LABS: CALCIUM 9.2 mg/dL (8.8-10.2); CREATININE 1.7 mg/dL (0.7-1.2); POTASSIUM 3.1 mmol/L (3.5-5.1)
--- NOTE | 2019-09-13 11:37 | PROGRESS NOTE ---
DATE: 09/13/2019 Mr. Hutchinson is in about the same general condition. He is getting PEG tube feeding. His cultures are negative. Blood pressure was slightly high today at 169/90. Blood sugar is 185, potassium is 3.1, BUN 13, creatinine 1.7. Will try to get the liquid KCl through the G-tube, and continue with the current management on him. -6 cc: MD Vineet Argueta MD
[2019-09-13 12:30] LABS: PHOSPHORUS 2.9 mg/dL (2.7-4.5)
[2019-09-13] MEDS: POTASSIUM CHLORIDE 10% LIQUID PO SCH (12:57)
[2019-09-13] MEDS: SODIUM CHLORIDE 0.9% INJ SCH (20:12)
[2019-09-13] MEDS: PROTONIX IV SCH (20:12)
[2019-09-14] MEDS: D5 1/2 NS + KCL 10 MEQ 1,000 ML IV SCH ×3 (01:04→20:53)
[2019-09-14] MEDS: ZOSYN 3.375 GM in NS 50 ML IV SCH ×4 (01:49→20:53)
[2019-09-14] MEDS: HUMULIN R SUBQ SCH ×4 (06:13→21:01)
[2019-09-14 07:45] LABS: CALCIUM 8.9 mg/dL (8.8-10.2); CREATININE 1.7 mg/dL (0.7-1.2); POTASSIUM 3.7 mmol/L (3.5-5.1)
[2019-09-14 07:51] LABS: ALBUMIN 3.6 g/dL (3.5-5.0); MAGNESIUM 2.1 mg/dL (1.5-2.7); PHOSPHORUS 2.9 mg/dL (2.7-4.5)
[2019-09-14 08:22] LABS: BASO# 0.02 X1000 (0.0-0.2); BASO% 0.2 % (0.0-0.8); EOS# 0.21 X1000 (0.0-0.7); HEMATOCRIT 39.8 % (42.0-52.0); HEMOGLOBIN 13.2 g/dL (14.0-18.0); IMM GRAN# 0.02 X1000 (0.0-0.04); IMM GRAN% 0.2 % (0.0-0.5); LYMPH# 2.63 X1000 (1.2-3.4); LYMPH% 25.1 % (20.5-51.1); MCH 28.9 PG (27-31); MCHC 33.2 g/dL (33-37); MCV 87.3 FL (81-99); MONO# 0.87 X1000 (0.11-0.59); MONO% 8.3 % (1.7-9.3); NEUT# 6.72 X1000 (1.4-6.5); NEUT% 64.2 % (42.2-75.2); PLT 151 X1000 (130-400); RBC 4.56 XMIL (4.7-6.1); RDW 14.5 % (11.5-14.5); WBC 10.47 X1000 (4.8-10.8)
[2019-09-14 08:48] LABS: ALB/GLOB RATIO 1.2; ALBUMIN 3.4 g/dL (3.5-5.0); CALCIUM 8.8 mg/dL (8.8-10.2); CREATININE 1.6 mg/dL (0.7-1.2); POTASSIUM 3.7 mmol/L (3.5-5.1); TOTAL BILIRUBIN 0.39 mg/dL (0.20-1.00); TOTAL PROTEIN 6.3 g/dL (6.3-8.3)
[2019-09-14] MEDS: POTASSIUM CHLORIDE 10% LIQUID PO SCH (09:52)
[2019-09-14] MEDS: GEODON IM PRN (16:17)
[2019-09-14] MEDS: PROTONIX IV SCH (20:54)
[2019-09-14] MEDS: SODIUM CHLORIDE 0.9% INJ SCH (20:55)
--- NOTE | 2019-09-14 21:34 | PROGRESS NOTE ---
DATE: 09/14/2019 SUBJECT: Is awake, is combative. Unger was placed. PEG was placed. Nutrition was started. Nurses were cleaning. PHYSICAL EXAMINATION: Temperature is 98 degrees, pulse 76, blood pressure is 154/80, 97% on room air .HEENT: Within normal limits. Chest: Clear. Heart: Sounds are regular. Belly: Soft, scaphoid and chronic stasis changes noted in both legs. Unger was placed. LABS: White cell count 10.4, hematocrit 39, platelets 151,000. Sodium 142, potassium 3.7, BUN 15, creatinine 1.6. ASSESSMENT AND PLAN: 1. Cellulitis, urinary tract infection on IV Zosyn. 2. Dehydration on intravenous fluids. 3. Keep the head end of the bed 45 degree elevation. 4. Deep vein thrombosis, gastrointestinal prophylaxis, Geodon for nausea and patient is getting nourishment through the percutaneous endoscopic gastrostomy and living will do not resuscitate. Will call the certified social workers in health care to transfer to [facility]. LEVEL OF DOCUMENTATION: 25 minutes. cc: Vineet Garcia MD
[2019-09-15] MEDS: ZOSYN 3.375 GM in NS 50 ML IV SCH ×4 (02:46→21:18)
[2019-09-15] MEDS: D5 1/2 NS + KCL 10 MEQ 1,000 ML IV SCH ×3 (04:43→21:23)
[2019-09-15] MEDS: HUMULIN R SUBQ SCH ×4 (06:40→21:18)
[2019-09-15 07:40] LABS: ALBUMIN 3.5 g/dL (3.5-5.0); CALCIUM 8.9 mg/dL (8.8-10.2); CREATININE 1.5 mg/dL (0.7-1.2); MAGNESIUM 2.2 mg/dL (1.5-2.7); PHOSPHORUS 2.5 mg/dL (2.7-4.5); POTASSIUM 3.9 mmol/L (3.5-5.1)
[2019-09-15] MEDS: POTASSIUM CHLORIDE 10% LIQUID PO SCH (08:47)
[2019-09-15] MEDS: PROTONIX IV SCH (21:18)
--- NOTE | 2019-09-15 21:29 | PROGRESS NOTE ---
DATE: 09/15/2019 SUBJECT: Patient is obtunded. The patient is getting the PEG tube feeding with glycerin, not tolerating diet very well. REVIEW OF SYSTEMS: None reported. Unger was placed. PHYSICAL EXAMINATION: Temperature is 98.9 degrees, pulse 80, blood pressure 177/92 and patient is in moribund state.Chest: Clear. Heart: Sounds are regular. Belly: Soft, nontender. LABS: Sodium 145, potassium 3.9, chloride 104, BUN 16, creatinine 1.5, glucose 177. ASSESSMENT AND PLAN: 1. Altered mental status due to metabolic encephalopathy. 2. Dehydration. 3. Underlying dementia due to vascular cerebrovascular accident on the right side. 4. Depression, hyperlipidemia, type 2 diabetes. PLAN: 1. Glucerna 1 can q.i.d. along with free water 250 mL 4 times a day. 2. Continue Unger catheter. 3. Slowly reconcile home medications. 4. Keep the head end of the bed 45 degree elevation. Care of the skin, bladder, and bowels, chronic venous stasis stable and will discharge back to the rehab. LEVEL OF DOCUMENTATION: 25 minutes. cc: Vineet Garcia MD
[2019-09-15] MEDS: SODIUM CHLORIDE 0.9% INJ SCH (22:59)
[2019-09-16] MEDS: ZOSYN 3.375 GM in NS 50 ML IV SCH ×4 (02:03→21:42)
[2019-09-16] MEDS: D5 1/2 NS + KCL 10 MEQ 1,000 ML IV SCH ×3 (06:24→22:40)
[2019-09-16] MEDS: HUMULIN R SUBQ SCH ×4 (06:25→21:44)
[2019-09-16] MEDS ORDERED: NON-FORMULARY MED (Arginine/Glutamine/Calcium Bmb [Juven Packet] 1 EA) PO SCH (09:00)
[2019-09-16] MEDS: POTASSIUM CHLORIDE 10% LIQUID PO SCH (11:19)
[2019-09-16] MEDS: VITAMIN D PO SCH (11:20)
[2019-09-16] MEDS: THERA M PLUS PO SCH (11:20)
[2019-09-16] MEDS: PATIENT'S OWN MED PO SCH (13:52)
[2019-09-16] MEDS: LIPITOR PO SCH (21:42)
[2019-09-16] MEDS: ASPIRIN PO SCH (21:42)
[2019-09-16] MEDS: PROTONIX IV SCH (21:42)
[2019-09-16] MEDS: SODIUM CHLORIDE 0.9% INJ SCH (21:43)
--- NOTE | 2019-09-16 23:18 | PROGRESS NOTE ---
DATE: 09/16/2019 SUBJECTIVE: The patient is still in restraints basically in vegataive state Unger and PEG were placed. Tolerating the tube feeding very well, and no complaints. OBJECTIVE: Temperature is 98 degrees. Vital signs are stable. As I said, no change in the physical exam. ASSESSMENT AND PLAN: 1. Vascular dementia. 2. Right cerebrovascular accident with left-sided weakness. 3. Agitation. 4. Dehydration. Tolerating very well. He is on intravenous fluids plus the nutrition from Glucerna. 5. Repeat the labs in the morning. Keep the head of the bed 45-degree elevation. I am going to restart some of his home medicines by percutaneous endoscopic gastrostomy tube, which include aspirin, Lipitor, vitamin D and Protonix. If he is stable, all the numbers and slowly given nutrition through the percutaneous endoscopic gastrostomy tube and discontinue fluids, we will transfer back to rehabilitation. His quality of care is dismal. In the meantime, continue Do Not Resuscitate/Allow Natural . Restraints as needed. Level of documentation 25 minutes. cc: Vineet Garcia MD MTDD
[2019-09-17] MEDS: ZOSYN 3.375 GM in NS 50 ML IV SCH ×4 (03:45→21:01)
[2019-09-17] MEDS: D5 1/2 NS + KCL 10 MEQ 1,000 ML IV SCH ×4 (06:43→21:00)
[2019-09-17] MEDS: HUMULIN R SUBQ SCH ×5 (06:44→21:08)
[2019-09-17 07:57] LABS: CALCIUM 9.3 mg/dL (8.8-10.2); CREATININE 1.6 mg/dL (0.7-1.2); POTASSIUM 4.2 mmol/L (3.5-5.1)
[2019-09-17 08:00] LABS: ALBUMIN 3.5 g/dL (3.5-5.0); MAGNESIUM 2.1 mg/dL (1.5-2.7); PHOSPHORUS 2.6 mg/dL (2.7-4.5)
[2019-09-17] MEDS: VITAMIN D PO SCH (10:16)
[2019-09-17] MEDS: THERA M PLUS PO SCH (10:16)
[2019-09-17] MEDS: POTASSIUM CHLORIDE 10% LIQUID PO SCH ×2 (10:16→10:20)
[2019-09-17] MEDS: PATIENT'S OWN MED PO SCH (10:18)
[2019-09-17] MEDS: PROTONIX IV SCH (21:03)
[2019-09-17] MEDS: SODIUM CHLORIDE 0.9% INJ SCH (21:03)
[2019-09-17] MEDS: ASPIRIN PO SCH (21:08)
[2019-09-17] MEDS: LIPITOR PO SCH (21:08)
--- NOTE | 2019-09-17 21:27 | PROGRESS NOTE ---
DATE: 09/17/2019 SUBJECTIVE: Appreciate palliative care consult. He is not improving. She spoke to the family. Anyhow, he is still restrained. He is on the PEG and IV fluids. Quality of life is not good, and he has a bed in [facility]. He continues to have fever. OBJECTIVE: Poor mouth care, in restraints. Status post PEG and Unger was placed. LABORATORY DATA: SMA 7: Sodium 136, potassium 4.3, BUN 20, creatinine 1.6. ASSESSMENT AND PLAN: 1. Altered mental status due to underlying dementia. 2. Impending dehydration. 3. Status post PEG and Unger catheter. 4. Chronic kidney disease. 5. Vascular dementia. 6. Three prior strokes. I agree with palliative care consult. We will take the restraints off and family decided to go for [facility] with comfort care. Discontinue the restraints. Continue on n.p.o. and transitioning the care to [facility] home health with palliative care and will follow up. LEVEL OF DOCUMENTATION: 25 minutes. cc: Vineet Garcia MD MTDD
[2019-09-18] MEDS: ZOSYN 3.375 GM in NS 50 ML IV SCH ×4 (01:49→21:00)
[2019-09-18] MEDS: D5 1/2 NS + KCL 10 MEQ 1,000 ML IV SCH ×2 (03:14→11:09)
[2019-09-18] MEDS: HUMULIN R SUBQ SCH ×4 (06:06→23:25)
[2019-09-18] MEDS: PATIENT'S OWN MED PO SCH (08:58)
[2019-09-18] MEDS: POTASSIUM CHLORIDE 10% LIQUID PO SCH (08:58)
[2019-09-18] MEDS: VITAMIN D PO SCH (09:00)
[2019-09-18] MEDS: THERA M PLUS PO SCH (09:01)
--- NOTE | 2019-09-18 12:14 | DISCHARGE SUMMARY ---
ADMISSION DATE: 09/01/2019 DISCHARGE DATE: 09/19/2019 DISCHARGING DIAGNOSIS: 1. Altered mental status due to metabolic encephalopathy. SECONDARY DIAGNOSES: 1. Vascular dementia. 2. History of right cerebrovascular accident with weakness on the left side. 3. Hypernatremic dehydration. 4. Chronic kidney disease. Creatinine 1.6. 5. Bladder outlet obstruction on Unger catheter. 6. High risk for aspiration, status post percutaneous endoscopic gastrostomy placement. 7. Type 2 diabetes, diet controlled. 8. Hyperlipidemia. 9. Depression. 10. Stasis dermatitis in both legs. 11. Onychomycosis of the toenails. 12. Pressure ulcers on the left hip, stage I, healing. 13. Urinary tract infection with methicillin-sensitive Staphylococcus aureus. CONSULTATIONS: 1. Urology consult Dr. Luis Cannon. 2. Dr. Torres. 3. Palliative care. PROCEDURES: 1. Unger catheter. 2. PEG placement. BRIEF HISTORY: The patient is a 53-year-old white male living in residential with above medical problems, has been declining since he had a stroke last year. Pretty much bedridden requiring 24/7 assistance. He has been basically living in a vegetative state. He has substantial declining performance status and deconditioned. The patient was brought in with altered mental status, fever. HOSPITAL COURSE: 1. With underlying dementia, his mental status was worsening due to profound dehydration. He was given IV fluids with potassium replacement. 2. He also had a fever due to UTI and cellulitis of the scrotum. Urinary infection grew methicillin-sensitive Staph aureus. The patient was given IV Zosyn. He was not able to empty the bladder with a high postvoid residual urine. As a result, it is worsening of the kidney disease. As a result, indwelling Unger catheter was placed. 3. Followup hydration: His renal function tests and sodium levels came back normal. Despite this, his conditions did not improve. 4. Palliative care consult was initiated and family decided to put a PEG placement for nutrition and giving his home medications. He was extremely agitated requiring Geodon and soft restraints. Speech therapy evaluation reported he has high risk for aspiration. As a result, the family agreed to put a PEG placement. The patient is receiving Glucerna 55 mL/hour. Binder was applied. 5. He has a chronic stasis dermatitis in both legs. He fails to improve and Palliative Care consult reported that the family made him DNR. Please see the portable DNR papers. They refused to take home with hospice. He is going back with palliative care/hospice at [facility] in a guarded condition. Restraints were taken off. He is still awake and restless. LABS: At the time of discharge as follows: CBC--white cell count 10, hematocrit 39.8, platelets 151, PT 14, INR 1.1. Sodium 136, potassium 4.2, BUN 20, creatinine 1.6, glucose 228, phosphorus 2.6, magnesiums were normal, albumin 3.5. MICROBIOLOGY: Cultures: Repeat urine was negative on 09/11/2019. Blood cultures were negative. DISCHARGE INSTRUCTIONS: 1. Care of the skin, bladder and bowels. 2. Care of the PEG site. 3. Continue Unger catheter; replace once a month. 4. Nutrition via PEG: Glucerna 1 can q. 6 hours followed by 250 mL of water. 5. Keep the head end of the bed 45 degree elevation. 6. Seroquel 25 p.o. b.i.d. for agitation and sliding scale with insulin coverage as needed. 7. Lisinopril 20 daily, Lipitor 40 daily, aspirin 81 mg daily, Wellbutrin 150 in the morning, vitamin D 3 2000 units daily and multivitamin 1 tablet daily. Tylenol for p.r.n. pain. 8. Prognosis is guarded. Continue palliative services for comfort care and family has agreed upon. cc: Vineet Garcia MD MTDD
[2019-09-18] MEDS: LIPITOR PO SCH (21:01)
[2019-09-18] MEDS: ASPIRIN PO SCH (21:02)
--- NOTE | 2019-09-18 21:46 | PROGRESS NOTE ---
DATE: 09/18/2019 SUBJECTIVE: The patient's condition has not improved. He continues to have a moribund state and vegetative state. No complaints. Off restraints. OBJECTIVE: Temperature is 98 degrees, tachycardic. Vital signs are stable. He is in vegetative state. ASSESSMENT AND PLAN: 1. The patient is going for rehab tomorrow with hospice. Continue on the nutritional support and Unger catheter. Please see the hospital discharge summary. 2. Living Will: Do Not Resuscitate/Allow Natural . Portable DNR papers were signed, paperwork was done. Waiting to be transferred to rehab tomorrow under hospice care. Prognosis is guarded. Level of documentation is 15 minutes. cc: Vineet Garcia MD
[2019-09-18] MEDS: PROTONIX IV SCH (23:25)
[2019-09-18] MEDS: SODIUM CHLORIDE 0.9% INJ SCH (23:25)
[2019-09-19] MEDS: D5 1/2 NS + KCL 10 MEQ 1,000 ML IV SCH ×3 (00:14→11:41)
[2019-09-19] MEDS: ZOSYN 3.375 GM in NS 50 ML IV SCH ×2 (03:56→09:08)
[2019-09-19] MEDS: HUMULIN R SUBQ SCH ×2 (07:51→11:42)
[2019-09-19] MEDS: THERA M PLUS PO SCH (09:09)
[2019-09-19] MEDS: POTASSIUM CHLORIDE 10% LIQUID PO SCH (09:09)
[2019-09-19] MEDS: PATIENT'S OWN MED PO SCH (09:09)
[2019-09-19] MEDS: VITAMIN D PO SCH (09:09)
[2019-09-19 11:57] VITALS: BP 162/100
== END 2019-09-19 13:05 | DRG 640 ==
LOC: SUPCPDRO → ED 09:25 → EDIPHOLD 12:10 → 3N 15:32
PROVIDERS: ADMIT Internal Medicine; ATTEND Internal Medicine